=== PATIENT | female | born 1970 | race Caucasian/White ===

== ENCOUNTER 2020-06-08 16:41 | Outpatient (REF) | payer OTHER, SELFPAY ==
[2020-06-09 13:02] LABS: Influenza A PCR NEGATIVE (Negative); Influenza B PCR NEGATIVE (Negative); Resp Syncy Virus RNA Qual PCR NEGATIVE (Negative); SARS COV2 PCR INHOUSE NEGATIVE (Negative)
== END 2020-06-08 16:42 | disposition home or self-care (01) ==
LOC: HO.LAB 16:41
PROVIDERS: Visit Provider Nurse Practitioner Family
DX: Z20.822 Contact with and (suspected) exposure to COVID-19 (principal); J02.9 Acute pharyngitis, unspecified
CPT/HCPCS: 0241U; 36415

== ENCOUNTER 2020-08-15 19:09 | Emergency (ER) | payer OTHER, SELFPAY ==
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
[2020-08-15 19:15] VITALS: BMI 28.1
[2020-08-15 19:27] VITALS: BP 122/72; PULSE 89; RESP 16; TEMP 36.9; O2SAT 98
[2020-08-15 20:00] VITALS: BP 147/93; PULSE 94; RESP 18; O2SAT 98
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
[2020-08-15] MEDS: Acetaminophen 325 MG TABLET 650 MG PO (20:28)
[2020-08-15 21:58] VITALS: BP 131/86; PULSE 90; RESP 16; TEMP 36.7; O2SAT 98
== END 2020-08-15 22:02 | disposition home or self-care (01) ==
PROVIDERS: Emergency Provider Emergency Medicine; PCP Internal Medicine
DX: S13.4XXA Sprain of ligaments of cervical spine, initial encounter (principal); M54.2 Cervicalgia; G44.309 Post-traumatic headache, unspecified, not intractable; F17.200 Nicotine dependence, unspecified, uncomplicated; Z79.899 Other long term (current) drug therapy; Z71.6 Tobacco abuse counseling; V43.52XA Car driver injured in collision with other type car in traffic accident, initial encounter; Y93.9 Activity, unspecified; Y92.410 Unspecified street and highway as the place of occurrence of the external cause; Y99.9 Unspecified external cause status
CPT/HCPCS: 70450; 72125; 99285

== ENCOUNTER 2021-02-23 09:02 | Emergency (ER) | payer OTHER, SELFPAY ==
[2021-02-23 09:28] VITALS: BP 136/64; PULSE 80; RESP 18; TEMP 36.9; O2SAT 99; BMI 28.3
[2021-02-23 09:56] VITALS: BP 133/75; PULSE 76; RESP 16; TEMP 36.9; O2SAT 99
--- NOTE | 2021-02-23 09:56 | ED_ITS ---
HPI - Abdominal Pain General Chief Complaint: Abdominal Pain Stated Complaint: Low back pain/fever/nausea Time Seen by Provider: 02/23/21 09:51 Source: patient Mode of arrival: ambulatory Limitations: no limitations History of Present Illness HPI narrative: 50 y/o female presenting to the ER with lower back pain, he adache, runny nose, generalized abdominal discomfort and not feeling well for the last 3-4 days. Her symptoms started shortly after taking care of her 2 grandchildren who had a cold. She has not vaccinated for COVID-19. She says they were tested for COVID-19 were negative. She reports her lower back pain is worse with movement and improved with rest. She denies any trauma or recent falls. She denies any burning with urination, urinary frequency or hesitancy. No hematuria. She has had no fevers but some chills intermittently. She reports a stomach ache with decreased appetite but is tolerating both p.o. fluids and solids. No vomiting but she had 3 episodes of diarrhea 2 days ago. No blood. MD elicited complaint: abdominal pain Pertinent past history: none Onset (ago): day(s) (4) Pain Consistency: intermittent Location: diffuse Severity: moderate Quality: aching Radiation: none Migration to: no migration Exacerbating factors: nothing Relieving factors: nothing Associated symptoms: chills Related Data Home Medications Medication Instructions Recorded Confirmed acetaminophen 500 mg tablet 500 mg PO Q6H PRN 06/08/20 amoxicillin 500 mg tablet 500 mg PO BID 06/08/20 cetirizine 10 mg tablet 10 mg PO DAILY 06/08/20 cyclobenzaprine 10 mg tablet 10 mg PO Q8H PRN 06/08/20 fluticasone propionate 50 1 spray INTRANASAL BID 06/08/20 mcg/actuation nasal spray,suspension omeprazole 20 mg capsule,delayed 20 mg PO DAILY 06/08/20 release Previous Rx's Medication Instructions Recorded amoxicillin 875 mg-potassium 1 tab PO BID 7 Days #14 tab 06/08/20 clavulanate 125 mg tablet cyclobenzaprine 10 mg tablet 10 mg PO TID PRN #10 tab 08/15/20 ibuprofen 600 mg tablet 600 mg PO TID PRN #10 tab 08/15/20 Allergies Allergy/AdvReac Type Severity Reaction Status Date / Time ciprofloxacin [From CIPRO] Allergy Unknown PT UNABLE Unverified 11/28/19 16:42 TO RECALL THE REACTION SHE HAD tramadol [TRAMADOL] Allergy Unknown UNK Unverified 11/28/19 16:42 Review of Systems Review of Systems Constitutional: No Fever, + Chills ENT/Mouth: No sore throat, No Rhinorrhea, No Swallowing Difficulty Eyes: No Eye Pain, No Swelling, No Redness Cardiovascular: No Chest Pain, No SOB, No Orthopnea, No Edema Respiratory: No Cough, No Sputum, No Wheezing, No dyspnea Gastrointestinal: No Nausea, No Vomiting, + Diarrhea, + abdominal Pain Genitourinary: No Dysuria, No Urinary Frequency, No Hematuria Musculoskeletal: No joint pain, + Myalgias Skin: No Skin Lesions, No rash Neuro: + Weakness, No Numbness, No Dizziness, No Headache Psych: No Anxiety/Panic, No Depression Heme/Lymph: No Bruising, No Lymphadenopathy Endocrine: No Polyuria, No Polydipsia Physical Exam Vital Signs: Vital Signs: Last Vital Signs Temp 98.5 F 02/23/21 09:56 Pulse 76 02/23/21 09:56 Resp 16 02/23/21 09:56 BP 133/75 02/23/21 09:56 Pulse Ox 99 02/23/21 09:56 BMI result Body Mass Index 28.3 Appearance: Alert. Oriented X3. No acute distress. Eyes: Pupils equal, round and reactive to light. ENT: Pharynx normal. Neck: Normal inspection. Neck supple. CVS: Normal heart rate and rhythm. Pulses normal. Respiratory: No respiratory distress. Breath sounds normal. Abdomen: Soft and non-tender. +BS x4. No CVA tenderness. Back: mild soft tissue tenderness of the bilteral middle and lower lumbar areas. no spinal tenderness. normal spinal ROM. neg straight leg raise. Skin: Skin warm and dry. Normal skin color. Normal skin turgor. No rashes. Extremities: No lower extremity edema. Neuro: Oriented X 3. Grossly normal nonfocal. Course Course Course Narrative: 50 y/o female presenting with multiple complaints after being around her 2 sick grandchildren last week. She is not vaccinated for COVID-19. We her symptoms and viral in etiology. Will check COVID swab, basic lab workup in urinalysis. She appears well with a benign physical exam. Reevaluation(s) Reevaluation #1: Lab workup and urinalysis are unremarkable. COVID is negative. She continues to appear well. At this time she is stable for discharge home with supportive care. Her symptoms are most likely due to viral infection most likely contracted from her grandchildren last week. Stable for DC home with outpatient follow-up. MDM - Abdominal Pain Lab Data Result diagrams: 02/23/21 10:30 02/23/21 10:49 Labs: Lab Results 02/23/21 02/23/21 02/23/21 Range/Units 10:02 10:30 10:30 WBC 10.8 (4.8-10.8) X10*3/uL RBC 3.88 L (4.20-5.50) X10*6/uL Hgb 11.9 L (12.0-16.0) g/dl Hct 36.2 L (37.0-47.0) % MCV 93.3 (80.0-98.0) fL MCH 30.7 (27.0-33.0) pg MCHC 32.9 (31.0-35.0) g/dl RDW 12.7 (11.0-16.0) % Plt Count 256 (160-400) X10*3/uL MPV 8.7 L (9.4-12.3) fL Immature Gran % (Auto) 0.3 (0.0-0.4) % Neut % (Auto) 68.1 (45-73) % Lymph % (Auto) 22.4 (20-40) % [place] % (Auto) 7.2 (2-11) % Eos % (Auto) 1.6 (0-4) % Baso % (Auto) 0.4 (0-2) % Lymph # (Auto) 2.4 (1.2-4.9) X10*3/uL [place] # (Auto) 0.8 (0.1-1.2) X10*3/uL Eos # (Auto) 0.2 (0.0-0.4) X10*3/uL Baso # (Auto) 0.0 (0.0-0.2) X10*3/uL Abs Immat Gran (auto) 0.03 (0.00-0.03) X10*3/uL Absolute Neuts (auto) 7.3 (2.0-8.3) x10*3/uL Absolute Nucleated RBC 0.000 (0.0-0.012) X10*3/uL Nucleated RBC % (auto) 0.0 (0.0-0.2) /100WBC Sodium (135-145) mmol/L Potassium (3.3-5.1) mmol/L Chloride (96-108) mmol/L Carbon Dioxide (22-29) mmol/L Anion Gap (12-20) BUN (9-16) mg/dL Creatinine (0.5-1.4) mg/dL Estim Creat Clear Calc Estimated GFR Random Glucose (60-115) mg/dL Calcium (8.4-10.2) mg/dL Magnesium (1.6-2.6) mg/dL Total Bilirubin (0.0-1.0) mg/dL Direct Bilirubin (0.0-0.5) mg/dL AST (5-31) U/L ALT (0-31) U/L Alkaline Phosphatase (39-117) U/L Total Protein (6.5-8.0) g/dL Albumin (3.5-5.0) g/dL Urine Color YELLOW Urine Appearance HAZY Urine pH 6.5 (5.0-8.0) Ur Specific [place] <= 1.005 (1.005-1.025) Urine Protein NEG (NEG-TRACE) MG/DL Urine Glucose (UA) NEG (NEG) MG/DL Urine Ketones NEG (NEG) MG/DL Urine Blood NEG (NEG) Urine Nitrite NEG (NEG) Ur Leukocyte Esterase NEG (NEG) COVID-19 ([place]) Negative (Negative) COVID-19 Clin Com See Note 02/23/21 Range/Units 10:49 WBC (4.8-10.8) X10*3/uL RBC (4.20-5.50) X10*6/uL Hgb (12.0-16.0) g/dl Hct (37.0-47.0) % MCV (80.0-98.0) fL MCH (27.0-33.0) pg MCHC (31.0-35.0) g/dl RDW (11.0-16.0) % Plt Count (160-400) X10*3/uL MPV (9.4-12.3) fL Immature Gran % (Auto) (0.0-0.4) % Neut % (Auto) (45-73) % Lymph % (Auto) (20-40) % [place] % (Auto) (2-11) % Eos % (Auto) (0-4) % Baso % (Auto) (0-2) % Lymph # (Auto) (1.2-4.9) X10*3/uL [place] # (Auto) (0.1-1.2) X10*3/uL Eos # (Auto) (0.0-0.4) X10*3/uL Baso # (Auto) (0.0-0.2) X10*3/uL Abs Immat Gran (auto) (0.00-0.03) X10*3/uL Absolute Neuts (auto) (2.0-8.3) x10*3/uL Absolute Nucleated RBC (0.0-0.012) X10*3/uL Nucleated RBC % (auto) (0.0-0.2) /100WBC Sodium 138 (135-145) mmol/L Potassium 4.0 (3.3-5.1) mmol/L Chloride 106 (96-108) mmol/L Carbon Dioxide 27 (22-29) mmol/L Anion Gap 9 L (12-20) BUN 10 (9-16) mg/dL Creatinine 0.68 (0.5-1.4) mg/dL Estim Creat Clear Calc 103.9 Estimated GFR > 60 Random Glucose 91 (60-115) mg/dL Calcium 9.3 (8.4-10.2) mg/dL Magnesium 2.3 (1.6-2.6) mg/dL Total Bilirubin 0.3 (0.0-1.0) mg/dL Direct Bilirubin < 0.2 (0.0-0.5) mg/dL AST 16 (5-31) U/L ALT 22 (0-31) U/L Alkaline Phosphatase 81 (39-117) U/L Total Protein 7.4 (6.5-8.0) g/dL Albumin 4.1 (3.5-5.0) g/dL Urine Color Urine Appearance Urine pH (5.0-8.0) Ur Specific [place] (1.005-1.025) Urine Protein (NEG-TRACE) MG/DL Urine Glucose (UA) (NEG) MG/DL Urine Ketones (NEG) MG/DL Urine Blood (NEG) Urine Nitrite (NEG) Ur Leukocyte Esterase (NEG) COVID-19 ([place]) (Negative) COVID-19 Clin Com Critical Care Time Critical Care Time Critical Care Time: No Discharge Plan Discharge Clinical Impression: Acute viral syndrome Patient Disposition: Home, Self-Care Instructions: Viral Syndrome (ED) Additional Instructions: Your lab workup today was normal. Your urine test was normal. You were negative for COVID-19. Your symptoms are most likely due to acute viral syndrome Recommend rest, increase her oral hydration and drink plenty water. Take Motrin and/or Tylenol as needed for body aches. Take [id number] cold and flu medication as needed for your symptoms. Follow-up with your doctor this week. If you develop new or worsening symptoms call 911 or come back to the ER for further evaluation. Prescriptions: No Action cyclobenzaprine 10 mg tablet 10 mg PO TID PRN (Reason: muscle spasm) Qty: 10 RF: 0 ibuprofen 600 mg tablet 600 mg PO TID PRN (Reason: pain) Qty: 10 RF: 0 fluticasone propionate 50 mcg/actuation spray,suspension 1 spray intranasal BID RF: 0 cetirizine 10 mg tablet 10 mg PO DAILY RF: 0 omeprazole 20 mg capsule,delayed release(DR/EC) 20 mg PO DAILY RF: 0 amoxicillin 500 mg tablet 500 mg PO BID RF: 0 cyclobenzaprine 10 mg tablet 10 mg PO Q8H PRN (Reason: muscle spasm) RF: 0 acetaminophen 500 mg tablet 500 mg PO Q6H PRN (Reason: pain) RF: 0 amoxicillin-pot clavulanate 875-125 mg tablet 1 tab PO BID 7 Days Qty: 14 RF: 0 Interventions: ED Discharge Assessment Last Done: 02/23/21 12:13 Discharge Date/Time: 02/23/21 12:22 [facility] Social History Social History Alcohol intake: never Patient Tobacco Use Status: Current everyday Tobacco user Smoked in Last 30 Days: Yes Use of substances other than those prescribed or required for medical reasons: No Advance Directives: No Advance Directives Information Provided: No Patient : No
[2021-02-23 10:08] LABS: Appearance Urine HAZY; Color Urine YELLOW; Glucose Urine UA NEG (NEG); Leukocyte Esterase Urine NEG (NEG); Nitrite Urine NEG (NEG); PH 6.5 (5.0-8.0); Specific Gravity - Urine <= 1.005 (1.005-1.025); Urine Blood NEG (NEG); Urine Ketones NEG (NEG); Urine Protein NEG (NEG-TRACE)
[2021-02-23 10:34] LABS: MANUAL DIFF FLAG NO
[2021-02-23 10:37] LABS: Basophils Percent Auto 0.4 % (0-2); Eosinophils Absolute Auto 0.2 X10*3/uL (0.0-0.4); Eosinophils Percent Auto 1.6 % (0-4); Hematocrit 36.2 % (37.0-47.0); Hemoglobin 11.9 g/dl (12.0-16.0); Imm Gran Abs Auto 0.03 X10*3/uL (0.00-0.03); Imm Gran Pct Auto 0.3 % (0.0-0.4); Lymphocytes Absolute Auto 2.4 X10*3/uL (1.2-4.9); Lymphocytes Percent Auto 22.4 % (20-40); Mean Corpuscular HGB Conc 32.9 g/dl (31.0-35.0); Mean Corpuscular Hemoglobin 30.7 pg (27.0-33.0); Mean Corpuscular Volume 93.3 fL (80.0-98.0); Mean Platelet Volume 8.7 fL (9.4-12.3); Monocytes Absolute Auto 0.8 X10*3/uL (0.1-1.2); Monocytes Percent Auto 7.2 % (2-11); Neutrophils Absolute Auto 7.3 x10*3/uL (2.0-8.3); Neutrophils Percent Auto 68.1 % (45-73); Platelet Count 256 X10*3/uL (160-400); Red Blood Count 3.88 X10*6/uL (4.20-5.50); Red Cell Distribution Width 12.7 % (11.0-16.0); White Blood Count 10.8 X10*3/uL (4.8-10.8)
[2021-02-23 10:51] LABS: COVID-19 Test Negative (Negative)
[2021-02-23 11:17] LABS: Alanine Aminotransferase 22 U/L (0-31); Albumin Level 4.1 g/dL (3.5-5.0); Alkaline Phosphatase 81 U/L (39-117); Anion Gap 9 (12-20); Aspartate Amino Transferase 16 U/L (5-31); Bilirubin Direct < 0.2 mg/dL (0.0-0.5); Bilirubin Total 0.3 mg/dL (0.0-1.0); Blood Urea Nitrogen 10 mg/dL (9-16); Calcium 9.3 mg/dL (8.4-10.2); Carbon Dioxide 27 mmol/L (22-29); Chloride 106 mmol/L (96-108); Creatinine Clr Calc Pharmacy 103.9; Estimated Glomerular Filt Rate > 60; Glucose Random 91 mg/dL (60-115); Magnesium 2.3 mg/dL (1.6-2.6); Sodium 138 mmol/L (135-145); Total Protein 7.4 g/dL (6.5-8.0)
== END 2021-02-23 12:22 | disposition home or self-care (01) ==
PROVIDERS: Physician Assistant; Emergency Provider Emergency Medicine
DX: B34.9 Viral infection, unspecified (principal); Z20.822 Contact with and (suspected) exposure to COVID-19; M54.50 Low back pain, unspecified; R51.9 Headache, unspecified
CPT/HCPCS: 36415; 80048; 80076; 81003; 83735; 85025; 87635; 99283; 99284

== ENCOUNTER 2021-04-03 15:47 | Emergency (ER) | payer OTHER, SELFPAY ==
--- NOTE | ~2021-04-03 | XR_ITS ---
EXAMINATION: XR CHEST CLINICAL INFORMATION: Shortness of breath and chest pain. COMPARISON: Chest radiograph dated from 04/13/2019. TECHNIQUE: 2 views of the chest were obtained. FINDINGS: Normal appearance of the cardiomediastinal silhouette. Clear lungs. No pleural effusions or pneumothorax. No acute osseous abnormalities. Thoracic spondylosis. XR/XR chest 2V IMPRESSION: No acute cardiopulmonary findings.
[2021-04-03 16:13] VITALS: BP 119/78; PULSE 81; RESP 18; TEMP 36.4; O2SAT 100; BMI 29.0
--- NOTE | 2021-04-03 16:59 | ED.GENADULT ---
HPI - General Adult General Chief complaint: General Medical Stated complaint: +covid 1/4 lower back pain,coughing Time Seen by Provider: 04/03/21 16:37 Source: patient Mode of arrival: ambulatory Limitations: no limitations History of Present Illness HPI narrative: 50-year-old female who tested positive for COVID on March 16 here with reports of sore throat, low back pain, weakness, cough, chest discomfort with coughing which has been persistent since diagnosis. No fevers, chills, sob, leg swelling or pain. Unvaccinated for COVID Related Data Home Medications Medication Instructions Recorded Confirmed acetaminophen 500 mg tablet 500 mg PO Q6H PRN 06/08/20 amoxicillin 500 mg tablet 500 mg PO BID 06/08/20 cetirizine 10 mg tablet 10 mg PO DAILY 06/08/20 cyclobenzaprine 10 mg tablet 10 mg PO Q8H PRN 06/08/20 fluticasone propionate 50 1 spray INTRANASAL BID 06/08/20 mcg/actuation nasal spray,suspension omeprazole 20 mg capsule,delayed 20 mg PO DAILY 06/08/20 release Previous Rx's Medication Instructions Recorded amoxicillin 875 mg-potassium 1 tab PO BID 7 Days #14 tab 06/08/20 clavulanate 125 mg tablet cyclobenzaprine 10 mg tablet 10 mg PO TID PRN #10 tab 08/15/20 ibuprofen 600 mg tablet 600 mg PO TID PRN #10 tab 08/15/20 Allergies Allergy/AdvReac Type Severity Reaction Status Date / Time ciprofloxacin [From CIPRO] Allergy Unknown PT UNABLE Verified 04/03/21 16:12 TO RECALL THE REACTION SHE HAD tramadol [TRAMADOL] Allergy Unknown UNK Verified 04/03/21 16:12 Review of Systems Review of Systems: Yes all other systems are reviewed and are negative Constitutional: Constitutional: Reports no additional constitutional complaints, Denies body ache(s), Denies chills, Denies fever(s), Denies headache(s) and Reports weakness Eyes: Eyes: Reports no additional eye complaints and Denies change in vision ENT: Reports system reviewed and no additional complaints, except as documented, Denies dizziness, Denies headache(s), Denies nasal congestion, Denies nasal discharge, Denies neck pain and Reports sore throat Cardiovascular: Cardiovascular: Reports no additional cardiovascular complaints, Denies chest pain, Denies leg edema and Denies dyspnea Respiratory: Respiratory: Reports no additional respiratory complaints, Reports cough, Denies dyspnea and Reports wheezing Gastrointestinal: Gastrointestinal: Reports no additional gastrointestinal complaints, Denies abdominal pain, Denies diarrhea, Denies nausea and Denies vomiting Genitourinary: Genitourinary: Reports no additional female genitourinary complaints and Denies urinary incontinence Musculoskeletal: Musculoskeletal: Reports no additional musculoskeletal complaints, Reports back pain, Denies arthralgias, Denies joint swelling, Denies neck pain, Denies numbness and Denies tingling Integumentary/Breasts: Skin/Breast: Reports system reviewed and no additional complaints, except as docu and Denies rash Neurologic: Reports system reviewed and no additional complaints, except as documented, Denies Abnormal speech present, Denies dizziness, Denies headache(s), Denies numbness, Denies tingling and Reports weakness Allergic/Immunologic: Allergic/Immunologic: Reports wheezing PMFSH Past Medical History Attestation statement: The following information was validated with the patient. Source: old records reviewed and nursing notes reviewed Social History Social History Alcohol intake: never Patient Tobacco Use Status: Current everyday Tobacco user Advance Directives: No Advance Directives Information Provided: No Patient : No Physical Exam Vital Signs: Vital Signs: Last Vital Signs Temp 97.6 F 04/03/21 16:13 Pulse 81 04/03/21 16:13 Resp 18 04/03/21 16:13 BP 119/78 04/03/21 16:13 Pulse Ox 100 04/03/21 16:13 BMI result Body Mass Index 29.0 Const: General: cooperative, healthy appearing, comfortable and no acute distress Orientation/consciousness: patient oriented x3 Limitations: no limitations HENMT: Head: Yes normal to inspection Ears: hearing grossly normal bilaterally and TM's normal bilaterally General nose exam: Normal external nose present Face and sinus: Yes normal facial exam Mouth: Normal oral and palatal mucosa present Throat: Yes posterior oropharynx normal, Yes tonsils normal and Yes uvula midline Eyes: General: appearance normal, both eyes and all related structures Pupils: Equal, round and reactive pupils present Neck: Neck: Yes normal visual inspection, Yes full ROM, Yes no lymphadenopathy and Yes no meningeal signs Chest: Chest palpation & inspection: normal inspection of the chest Resp: Effort & Inspection: normal respiratory effort Auscultation: clear to auscultation bilaterally Cardio: Rate: regular rate Rhythm: regular rhythm Peripheral pulses: Peripheral pulses 2+ throughout GI: Inspection: Yes normal to inspection Palpation (GI): Soft to palpation and nontender Auscultation: normal bowel sounds Back/Spine/Pelvis: Thoracic/Lumbar Spine: thoracic and lumbar spine normal to inspection Skin: General skin exam: no rashes or lesions noted Neuro: General: patient oriented x3, no meningeal signs, no focal motor deficits and normal sensation to monofilament Cranial nerves: Yes Equal, round and reactive pupils present Cognition (Neuro): normal cognition Speech: No Abnormal speech present Gait exam (Neuro): Normal gait present Motor exam (neuro): 5/5 motor strength present throughout Extrem: General: Yes normal to inspection, Yes no pedal edema and Yes no calf tenderness Course Course Course Narrative: 50-year-old female here with reports of continued sore throat, low back pain, generalized weakness, cough, chest discomfort with coughing since being diagnosed with COVID March 16 Vitals are stable Exam is benign Will check x-ray 1730-chest x-ray is negative for pneumonia. Overall patient appears well. Vitals are stable and exam is benign. Her lungs are clear throughout. Likely chest wall strain secondary to coughing. Perc score is 0. Less likely PE. Likely lingering symptoms secondary to recent viral infection. Reviewed worrisome signs and symptoms of when to return to the emergency department. Comfortable discharge home. Medical Decision Making Medical Records Medical records reviewed: Yes I reviewed the patient's medical records. Lab Data Lab results reviewed: Yes I reviewed the patient's lab results. Imaging Data Chest x-ray: Attestation: I personally reviewed and interpreted this imaging study as follows: Radiologist's impression: [address] [address] XRay Report Signed Patient: Damaris Herring MR#: [id number] : 09/26/1995 Acct:[id number] Age/Sex: 25 / F ADM Date: 04/03/21 Loc: .ED Attending Dr: Ordering Physician: Bing Lentz NP Date of Service: 04/03/21 Procedure(s): XR chest 2V Accession Number(s): [id number] cc: Bing Lentz MARKETING SUPPORT COORDINATOR~ EXAMINATION: XR CHEST CLINICAL INFORMATION: Cough and wheezing COMPARISON: Previous chest x-ray 03/11/2021 TECHNIQUE: 2 views of the chest were obtained. FINDINGS: The cardiac and mediastinal contours are normal. The lung volumes are low. There is a left perihilar infiltrate new from February 2021 exam. The right lung is clear. There is no pleural effusion or pneumothorax. Bony structures are unremarkable. XR/XR chest 2V IMPRESSION: Low lung volumes and new left perihilar infiltrate. Discharge Plan Discharge Clinical Impression: COVID-19 Patient Disposition: Home, Self-Care Instructions: COVID-19 (Coronavirus Disease 2019) (ED) Additional Instructions: Your x-ray shows no signs of pneumonia. Your vitals including her oxygen are all normal You may alternate Motrin and Tylenol for pain or fever Increase fluids and rest Retesting for COVID is not indicated Prescriptions: No Action cyclobenzaprine 10 mg tablet 10 mg PO TID PRN (Reason: muscle spasm) Qty: 10 RF: 0 ibuprofen 600 mg tablet 600 mg PO TID PRN (Reason: pain) Qty: 10 RF: 0 fluticasone propionate 50 mcg/actuation spray,suspension 1 spray intranasal BID RF: 0 cetirizine 10 mg tablet 10 mg PO DAILY RF: 0 omeprazole 20 mg capsule,delayed release(DR/EC) 20 mg PO DAILY RF: 0 amoxicillin 500 mg tablet 500 mg PO BID RF: 0 cyclobenzaprine 10 mg tablet 10 mg PO Q8H PRN (Reason: muscle spasm) RF: 0 acetaminophen 500 mg tablet 500 mg PO Q6H PRN (Reason: pain) RF: 0 amoxicillin-pot clavulanate 875-125 mg tablet 1 tab PO BID 7 Days Qty: 14 RF: 0 Referrals: Physician,None [Primary Care Provider] - 2 days
== END 2021-04-03 17:45 | disposition home or self-care (01) ==
PROVIDERS: Emergency Provider Internal Medicine
DX: U07.1 COVID-19 (principal); M54.50 Low back pain, unspecified
CPT/HCPCS: 71046; 99283

== ENCOUNTER 2021-04-22 10:43 | Emergency (ER) | payer OTHER, SELFPAY ==
--- NOTE | ~2021-04-22 | US_ITS ---
EXAMINATION: US RETROPERITONEAL LIMITED (RENAL ONLY) CLINICAL INFORMATION: Left flank pain with history of stone. COMPARISON: CT abdomen pelvis 10/23/2017 TECHNIQUE: Ultrasound of the kidneys was performed. FINDINGS: RIGHT KIDNEY: 12.0 x 5.9 x 6.4 cm (SAG x AP x TRV). The kidney is normal in size, contour, and echogenicity. Renal cortical thickness is normal. No calculi or focal parenchymal lesions. No hydronephrosis. LEFT KIDNEY: 11.9 x 6.4 x 4.6 cm (SAG x AP x TRV). The kidney is normal in size, contour, and echogenicity. Renal cortical thickness is normal. A benign Bosniak class I 2.3 cm lower pole cyst is again noted (prior CT 5:54) which needs no further imaging or follow-up. No calculi or focal parenchymal lesions. No renal calcifications were seen on the prior CT. No hydronephrosis. US/US renal BI IMPRESSION: Negative exam.
[2021-04-22 11:43] VITALS: BP 137/72; PULSE 79; RESP 18; TEMP 36.9; O2SAT 100; BMI 28.1
[2021-04-22 12:15] LABS: Appearance Urine CLEAR; Color Urine STRAW; Glucose Urine UA NEG (NEG); Leukocyte Esterase Urine NEG (NEG); Nitrite Urine NEG (NEG); Specific Gravity - Urine <= 1.005 (1.005-1.025); Urine Blood NEG (NEG); Urine Ketones NEG (NEG); Urine Protein NEG (NEG-TRACE)
--- NOTE | 2021-04-22 17:44 | ED_ITS ---
HPI - Female Genitourinary General Chief complaint: Urogenital-Female Stated complaint: kidney pain Time Seen by Provider: 04/22/21 15:29 Source: patient Mode of arrival: ambulatory Limitations: no limitations History of Present Illness HPI Narrative: 50-year-old female came in for evaluation of left side flank pain. Pain started 3 days ago, described as dull aching pain, intermittent, aggravated with movement or bending, no relieving factor, associated with increased urinary frequency but no dysuria, no fever, no chills. Patient declined any recent trauma or strenuous activity more than her normal, patient take care of her grand children that she need to carry them sporadically. Patient had history of kidney stone in the past, no past surgical history, sexually active with 1 partner with no risk of STDs. Related Data Home Medications Medication Instructions Recorded Confirmed acetaminophen 500 mg tablet 500 mg PO Q6H PRN 06/08/20 amoxicillin 500 mg tablet 500 mg PO BID 06/08/20 cetirizine 10 mg tablet 10 mg PO DAILY 06/08/20 cyclobenzaprine 10 mg tablet 10 mg PO Q8H PRN 06/08/20 fluticasone propionate 50 1 spray INTRANASAL BID 06/08/20 mcg/actuation nasal spray,suspension omeprazole 20 mg capsule,delayed 20 mg PO DAILY 06/08/20 release Previous Rx's Medication Instructions Recorded amoxicillin 875 mg-potassium 1 tab PO BID 7 Days #14 tab 06/08/20 clavulanate 125 mg tablet cyclobenzaprine 10 mg tablet 10 mg PO TID PRN #10 tab 08/15/20 ibuprofen 600 mg tablet 600 mg PO TID PRN #10 tab 08/15/20 cyclobenzaprine 10 mg tablet 10 mg PO TID PRN #14 tab 04/22/21 ibuprofen 600 mg tablet 600 mg PO TID PRN #10 tab 04/22/21 Allergies Allergy/AdvReac Type Severity Reaction Status Date / Time ciprofloxacin [From CIPRO] Allergy Unknown PT UNABLE Verified 04/03/21 16:12 TO RECALL THE REACTION SHE HAD tramadol [TRAMADOL] Allergy Unknown UNK Verified 04/03/21 16:12 Review of Systems Review of Systems: All other systems are reviewed and are negative Constitutional: Reports as per HPI and Reports no additional constitutional complaints Eyes: Reports as per HPI and Reports no additional eye complaints Reports system reviewed and no additional complaints, except as documented Cardiovascular: Reports as per HPI and Reports no additional cardiovascular complaints Respiratory: Reports as per HPI and Reports no additional respiratory complaints Gastrointestinal: Reports as per HPI and Reports no additional gastrointestinal complaints Genitourinary: Reports no additional female genitourinary complaints Musculoskeletal: Reports no additional musculoskeletal complaints Skin/Breast: Reports system reviewed and no additional complaints, except as docu Psychiatric: Reports no additional psychiatric complaints Endocrine: Reports no additional endocrine complaints Hematologic/Lymphatic: Reports no additional hematologic/lymphatic complaints Allergic/Immunologic: Reports no additional allergic/immunologic complaints Reports system reviewed and no additional complaints, except as documented and Reports Abnormal speech present [facility] Social History Social History Alcohol intake: never Patient Tobacco Use Status: Never used Tobacco Use of substances other than those prescribed or required for medical reasons: No Advance Directives: No Advance Directives Information Provided: No Patient : No Physical Exam Vital Signs: Vital Signs: Last Vital Signs Temp 98.3 F 04/22/21 19:45 Pulse 80 04/22/21 19:45 Resp 20 04/22/21 19:45 BP 132/65 04/22/21 19:45 Pulse Ox 100 04/22/21 19:45 BMI result Body Mass Index 28.1 vital signs have been reviewed as appeared to be correct. Blood pressure normal. Heart rate normal. Respiration rate normal. Temperature normal. Oxygen saturation normal. Appearance: Alert. Oriented X3. No acute distress. Head: Normal external exam. Normocephalic. Atraumatic. No Curry signs noted. No raccoon eyes noted Eyes: PERRLA. EOMI. Conjunctiva and sclera normal. Eyelids normal. ENT: TM's Normal. Pharynx normal. Uvula midline. Moist mucous membranes. No trismus noted. No drooling noted. No muffled voice noted. Neck: Normal inspection. Neck supple. FROM. No adenopathy. Thyroid Normal. No meningeal signs. No neck mass noted. CVS: Normal heart rate and rhythm. Heart sound normal. No murmurs noted. Pulses normal throughout. Respiratory: No respiratory distress. Painless inspiration. Breath sounds normal. No wheezes/rales/rhonchi noted. Chest nontender. No accessory muscle usage noted or decreased air movement noted. Abdomen: Soft and nontender. Bowel sounds normal in all 4 quadrants. No distention noted. No organomegaly noted. No visible injury noted. Back: No CVA tenderness. Mild tenderness over left flank area with touch and with movement. Skin: Skin warm and dry. Normal skin color. Normal skin turgor. No rashes/lesions/lacerations noted. Extremities: No lower extremity edema. Extremities exhibit normal range of motion. Extremities nontender. Neuro: Oriented X 3. Cranial nerve exam: II-XII are grossly intact No motor deficit. No sensory deficit. Reflexes normal. Course Course Course Narrative: Assessment and plan. 50-year-old female came in for evaluation of left flank pain for 3 days with equivocal dysuria, clear urine, unremarkable Labs Except for leukocytosis. ultrasound of the kidney is unremarkable for kidney stones, physical exam and findings are consistent with myofascial muscular spasm. Will recommend NSAIDs/ Tylenol with muscle relaxant and heating pads. MDM - Female Genitourinary Lab Data Attestation: I reviewed the patient's lab results. Result diagrams: 04/22/21 17:49 04/22/21 17:49 Labs: Lab Results 04/22/21 04/22/21 04/22/21 Range/Units 11:53 17:49 17:49 WBC 13.4 H (4.8-10.8) X10*3/uL RBC 3.86 L (4.20-5.50) X10*6/uL Hgb 11.7 L (12.0-16.0) g/dl Hct 36.0 L (37.0-47.0) % MCV 93.3 (80.0-98.0) fL MCH 30.3 (27.0-33.0) pg MCHC 32.5 (31.0-35.0) g/dl RDW 13.1 (11.0-16.0) % Plt Count 283 (160-400) X10*3/uL MPV 8.6 L (9.4-12.3) fL Immature Gran % (Auto) 0.3 (0.0-0.4) % Neut % (Auto) 76.3 H (45-73) % Lymph % (Auto) 16.0 L (20-40) % [place] % (Auto) 5.5 (2-11) % Eos % (Auto) 1.6 (0-4) % Baso % (Auto) 0.3 (0-2) % Lymph # (Auto) 2.1 (1.2-4.9) X10*3/uL [place] # (Auto) 0.7 (0.1-1.2) X10*3/uL Eos # (Auto) 0.2 (0.0-0.4) X10*3/uL Baso # (Auto) 0.0 (0.0-0.2) X10*3/uL Abs Immat Gran (auto) 0.04 H (0.00-0.03) X10*3/uL Absolute Neuts (auto) 10.2 H (2.0-8.3) x10*3/uL Absolute Nucleated RBC 0.000 (0.0-0.012) X10*3/uL Nucleated RBC % (auto) 0.0 (0.0-0.2) /100WBC Sodium 138 (135-145) mmol/L Potassium 3.8 (3.3-5.1) mmol/L Chloride 104 (96-108) mmol/L Carbon Dioxide 29 (22-29) mmol/L Anion Gap 9 L (12-20) BUN 9 (9-16) mg/dL Creatinine 0.74 (0.5-1.4) mg/dL Estim Creat Clear Calc 95.2 Estimated GFR > 60 Random Glucose 144 H (60-115) mg/dL Calcium 9.3 (8.4-10.2) mg/dL Total Bilirubin 0.2 (0.0-1.0) mg/dL AST 16 (5-31) U/L ALT 21 (0-31) U/L Alkaline Phosphatase 85 (39-117) U/L Total Protein 7.6 (6.5-8.0) g/dL Albumin 4.1 (3.5-5.0) g/dL Urine Color STRAW Urine Appearance CLEAR Urine pH 6.0 (5.0-8.0) Ur Specific [place] <= 1.005 (1.005-1.025) Urine Protein NEG (NEG-TRACE) MG/DL Urine Glucose (UA) NEG (NEG) MG/DL Urine Ketones NEG (NEG) MG/DL Urine Blood NEG (NEG) Urine Nitrite NEG (NEG) Ur Leukocyte Esterase NEG (NEG) Imaging Data abdominal ultrasound: Attestation: I personally reviewed and interpreted this imaging study as follows: Radiologist's impression: RIGHT KIDNEY: 12.0 x 5.9 x 6.4 cm (SAG x AP x TRV). The kidney is normal in size, contour, and echogenicity. Renal cortical thickness is normal. No calculi or focal parenchymal lesions. No hydronephrosis. LEFT KIDNEY: 11.9 x 6.4 x 4.6 cm (SAG x AP x TRV). The kidney is normal in size, contour, and echogenicity. Renal cortical thickness is normal. A benign Bosniak class I 2.3 cm lower pole cyst is again noted (prior CT 5:54) which needs no further imaging or follow-up. No calculi or focal parenchymal lesions. No renal calcifications were seen on the prior CT. No hydronephrosis. Discharge Plan Discharge Clinical Impression: Acute myofascial pain Patient Disposition: Home, Self-Care Instructions: Musculoskeletal Pain (ED) Additional Instructions: rest/ heating pads/ use ibuprofen/ Tylenol. Prescriptions: New cyclobenzaprine 10 mg tablet 10 mg PO TID PRN (Reason: muscle spasm) Qty: 14 0RF ibuprofen 600 mg tablet 600 mg PO TID PRN (Reason: pain) Qty: 10 0RF No Action cyclobenzaprine 10 mg tablet 10 mg PO TID PRN (Reason: muscle spasm) Qty: 10 0RF ibuprofen 600 mg tablet 600 mg PO TID PRN (Reason: pain) Qty: 10 0RF fluticasone propionate 50 mcg/actuation spray,suspension 1 spray intranasal BID 0RF cetirizine 10 mg tablet 10 mg PO DAILY 0RF omeprazole 20 mg capsule,delayed release(DR/EC) 20 mg PO DAILY 0RF amoxicillin 500 mg tablet 500 mg PO BID 0RF cyclobenzaprine 10 mg tablet 10 mg PO Q8H PRN (Reason: muscle spasm) 0RF acetaminophen 500 mg tablet 500 mg PO Q6H PRN (Reason: pain) 0RF amoxicillin-pot clavulanate 875-125 mg tablet 1 tab PO BID 7 Days Qty: 14 0RF Referrals: Physician,Unknown J [Primary Care Provider] - 2 days
[2021-04-22 17:53] LABS: MANUAL DIFF FLAG NO
[2021-04-22 17:56] LABS: Basophils Percent Auto 0.3 % (0-2); Eosinophils Absolute Auto 0.2 X10*3/uL (0.0-0.4); Eosinophils Percent Auto 1.6 % (0-4); Hemoglobin 11.7 g/dl (12.0-16.0); Imm Gran Abs Auto 0.04 X10*3/uL (0.00-0.03); Imm Gran Pct Auto 0.3 % (0.0-0.4); Lymphocytes Absolute Auto 2.1 X10*3/uL (1.2-4.9); Mean Corpuscular HGB Conc 32.5 g/dl (31.0-35.0); Mean Corpuscular Hemoglobin 30.3 pg (27.0-33.0); Mean Corpuscular Volume 93.3 fL (80.0-98.0); Mean Platelet Volume 8.6 fL (9.4-12.3); Monocytes Absolute Auto 0.7 X10*3/uL (0.1-1.2); Monocytes Percent Auto 5.5 % (2-11); Neutrophils Absolute Auto 10.2 x10*3/uL (2.0-8.3); Neutrophils Percent Auto 76.3 % (45-73); Platelet Count 283 X10*3/uL (160-400); Red Blood Count 3.86 X10*6/uL (4.20-5.50); Red Cell Distribution Width 13.1 % (11.0-16.0); White Blood Count 13.4 X10*3/uL (4.8-10.8)
[2021-04-22 18:00] VITALS: BP 123/70; PULSE 87; RESP 18; TEMP 36.9; O2SAT 98
[2021-04-22 18:12] LABS: Alanine Aminotransferase 21 U/L (0-31); Albumin Level 4.1 g/dL (3.5-5.0); Alkaline Phosphatase 85 U/L (39-117); Anion Gap 9 (12-20); Aspartate Amino Transferase 16 U/L (5-31); Bilirubin Total 0.2 mg/dL (0.0-1.0); Blood Urea Nitrogen 9 mg/dL (9-16); Calcium 9.3 mg/dL (8.4-10.2); Carbon Dioxide 29 mmol/L (22-29); Chloride 104 mmol/L (96-108); Creatinine Clr Calc Pharmacy 95.2; Estimated Glomerular Filt Rate > 60; Glucose Random 144 mg/dL (60-115); Potassium 3.8 mmol/L (3.3-5.1); Sodium 138 mmol/L (135-145); Total Protein 7.6 g/dL (6.5-8.0)
[2021-04-22] MEDS: Cyclobenzaprine HCl 10 MG TABLET PO (18:23)
[2021-04-22] MEDS: Acetaminophen 325 MG TABLET 650 MG PO (18:23)
--- NOTE | 2021-04-22 18:46 | PC.NURSE ---
c/o right sided lower back pain. up with steady gait to BR. awaits ultrasound.
[2021-04-22 19:45] VITALS: BP 132/65; PULSE 80; RESP 20; TEMP 36.8; O2SAT 100
[2021-04-22] MEDS: oxyCODONE HCl Immed Release 5 MG TABLET PO (20:46)
[2021-04-22 20:47] VITALS: BP 132/65; PULSE 80; RESP 16
== END 2021-04-22 21:21 | disposition home or self-care (01) ==
PROVIDERS: Nurse Practitioner Family; Emergency Provider Emergency Medicine
DX: R10.9 Unspecified abdominal pain (principal); R51.9 Headache, unspecified; Z79.899 Other long term (current) drug therapy
CPT/HCPCS: 36415; 76775; 80053; 81003; 85025; 99284

== ENCOUNTER 2021-05-23 11:26 | Emergency (ER) | payer OTHER, SELFPAY ==
--- NOTE | ~2021-05-23 | XR_ITS ---
EXAMINATION: XR CHEST CLINICAL INFORMATION: Cough, shortness of breath COMPARISON: Chest x-ray 04/03/2021 TECHNIQUE: Frontal view of the chest was obtained. FINDINGS: Normal cardiomediastinal silhouette. Adequate expansion of the lungs. No focal consolidation. No pleural effusion or pneumothorax. No acute osseous abnormality. Degenerative changes of the spine. XR/XR chest 1V IMPRESSION: No acute disease within the chest. No focal consolidation.
[2021-05-23 11:29] VITALS: BP 110/70; PULSE 92; RESP 18; TEMP 36.4; O2SAT 99; BMI 28.3
[2021-05-23 11:53] LABS: COVID-19 Test Negative (Negative); IDNOW Serial# 9DB6401D
[2021-05-23 11:54] LABS: IDNOW Serial# 08D9AD1C; Influenza A Negative (Negative); Influenza B2 Negative (Negative)
--- NOTE | 2021-05-23 12:17 | ED.URI ---
HPI - URI/Sore Throat General Chief Complaint: Upper Respiratory Symptoms Stated Complaint: headaches/flu like symptoms Time Seen by Provider: 05/23/21 12:03 Source: patient Mode of arrival: ambulatory History of Present Illness HPI Narrative: 51-year-old female with no significant past medical history presenting to the ED complaining of headache, nasal congestion, rhinorrhea, sore throat, cough, mild SOB, and dysuria x3 days. Reports associated suprapubic pain. Denies fever, chest pain, abdominal pain, nausea, vomiting, flank pain MD elicited complaint: fever, cough, sore throat, rhinorrhea and nasal congestion Onset (ago): day(s) Related Data Home Medications Medication Instructions Recorded Confirmed acetaminophen 500 mg tablet 500 mg PO Q6H PRN 06/08/20 amoxicillin 500 mg tablet 500 mg PO BID 06/08/20 cetirizine 10 mg tablet 10 mg PO DAILY 06/08/20 cyclobenzaprine 10 mg tablet 10 mg PO Q8H PRN 06/08/20 fluticasone propionate 50 1 spray INTRANASAL BID 06/08/20 mcg/actuation nasal spray,suspension omeprazole 20 mg capsule,delayed 20 mg PO DAILY 06/08/20 release Previous Rx's Medication Instructions Recorded amoxicillin 875 mg-potassium 1 tab PO BID 7 Days #14 tab 06/08/20 clavulanate 125 mg tablet cyclobenzaprine 10 mg tablet 10 mg PO TID PRN #10 tab 08/15/20 ibuprofen 600 mg tablet 600 mg PO TID PRN #10 tab 08/15/20 cyclobenzaprine 10 mg tablet 10 mg PO TID PRN #14 tab 04/22/21 ibuprofen 600 mg tablet 600 mg PO TID PRN #10 tab 04/22/21 Allergies Allergy/AdvReac Type Severity Reaction Status Date / Time ciprofloxacin [From CIPRO] Allergy Unknown PT UNABLE Verified 04/03/21 16:12 TO RECALL THE REACTION SHE HAD tramadol [TRAMADOL] Allergy Unknown UNK Verified 04/03/21 16:12 Review of Systems Review of Systems: Constitutional: No Fever, No Chills ENT/Mouth: No Ear Pain, + Nasal Congestion, No Hoarseness, + sore throat, + Rhinorrhea, No Swallowing Difficulty Cardiovascular: No Chest Pain, + SOB Respiratory: + Cough, No Sputum, No Wheezing Gastrointestinal: No Nausea, No Vomiting, No Diarrhea, No Constipation, No Abdominal pain Genitourinary: No Dysuria, No Urinary Frequency, No Hematuria, No Flank Pain Musculoskeletal: No joint pain, No Myalgias, No Joint Swelling Skin: No Skin Lesions, No rash Neuro: No Weakness, No Numbness, +headache Yes all other systems are reviewed and are negative [facility] Past Medical History Attestation statement: The following information was validated with the patient. Social History Social History Alcohol intake: never Patient Tobacco Use Status: Never used Tobacco Advance Directives: No Advance Directives Information Provided: No Physical Exam Vital Signs: Vital Signs: Last Vital Signs Temp 97.5 F 05/23/21 11:29 Pulse 92 05/23/21 11:29 Resp 18 05/23/21 11:29 BP 110/70 05/23/21 11:29 Pulse Ox 99 05/23/21 11:29 BMI result Body Mass Index 28.3 Const: General: cooperative, healthy appearing, no acute distress, alert and awake Orientation/consciousness: patient oriented x3 Limitations: no limitations HENMT: Head: Yes normal to inspection Ears: hearing grossly normal bilaterally, external ears normal and TM's normal bilaterally General nose exam: Normal external nose present Face and sinus: Yes normal facial exam Mouth: Normal oral and palatal mucosa present Throat: Yes posterior oropharynx normal, Yes uvula midline, No abnormal tonsil, No peritonsillar mass and No uvula laterally displaced Eyes: General: appearance normal, both eyes and all related structures EOM: EOMs intact bilaterally Neck: Neck: Yes normal visual inspection, Yes no lymphadenopathy, Yes no meningeal signs and Yes supple Resp: Effort & Inspection: normal respiratory effort and no respiratory distress Auscultation: clear to auscultation bilaterally, no rales, no rhonchi and no wheezes Cardio: Rate: regular rate Heart sounds: S1 normal heart sound present and S2 normal heart sound present GI: Inspection: Yes normal to inspection Palpation (GI): Soft to palpation, nontender, no guarding and not rigid Skin: Rashes: no rashes Wounds: no wounds Neuro: General: patient oriented x3 and no meningeal signs Gait exam (Neuro): Normal gait present Extrem: General: Yes normal to inspection Course Course Course Narrative: 1259--rapid strep negative. Influenza negative. COVID-19 negative. XR chest 1V IMPRESSION: No acute disease within the chest. No focal consolidation. UA negative > results discussed with patient including worsening signs and symptoms and strict return precautions and need to follow-up with PCP MDM - URI/Sore Throat MDM Narrative Medical decision making narrative: 51-year-old female with no significant past medical history presenting to the ED complaining of headache, nasal congestion, rhinorrhea, sore throat, cough, mild SOB, and dysuria x3 days. On exam vital signs stable, NAD/well-appearing, lungs CTA, or pharynx WNL, abdomen soft/nontender fever concern for viral syndrome including COVID-19 and influenza vs strep pharyngitis. R/o UTI Plan: COVID-19 testing, influenza testing, rapid strep, UA Differential Diagnosis Differential diagnosis: Likely upper respiratory infection, viral infection, bronchitis, influenza and pharyngitis Medical Records Attestation: I reviewed the patient's medical records. Lab Data Attestation: I reviewed the patient's lab results. Labs: Lab Results 05/23/21 05/23/21 05/23/21 Range/Units 11:32 11:32 12:19 Urine Color Urine Appearance Urine pH (5.0-8.0) Ur Specific [place] (1.005-1.025) Urine Protein (NEG-TRACE) MG/DL Urine Glucose (UA) (NEG) MG/DL Urine Ketones (NEG) MG/DL Urine Blood (NEG) Urine Nitrite (NEG) Ur Leukocyte Esterase (NEG) COVID-19 ([place]) Negative (Negative) COVID-19 Clin Com See Note Influenza Type A ([place]) Negative (Negative) Influenza Type B ([place]) Negative (Negative) Influenza A & B Note See Note S. pyogenes GrpA [place] Negative (Negative) 05/23/21 Range/Units 12:20 Urine Color YELLOW Urine Appearance CLEAR Urine pH 6.0 (5.0-8.0) Ur Specific [place] 1.015 (1.005-1.025) Urine Protein NEG (NEG-TRACE) MG/DL Urine Glucose (UA) NEG (NEG) MG/DL Urine Ketones NEG (NEG) MG/DL Urine Blood NEG (NEG) Urine Nitrite NEG (NEG) Ur Leukocyte Esterase NEG (NEG) COVID-19 ([place]) (Negative) COVID-19 Clin Com Influenza Type A ([place]) (Negative) Influenza Type B ([place]) (Negative) Influenza A & B Note S. pyogenes GrpA [place] (Negative) Discharge Plan Discharge Clinical Impression: Viral infection Patient Disposition: Home, Self-Care Instructions: Viral Syndrome (ED) Additional Instructions: You tested negative for the flu, COVID-19, and strep throat Her chest x-ray is unremarkable Your urine is not infected Rest, stay hydrated, placed follow-up with her doctor Take Tylenol and Motrin as needed If her symptoms persist or worsen, he develops fevers unresolved with medications, shortness of breath or chest discomfort please return to the ED Prescriptions: No Action cyclobenzaprine 10 mg tablet 10 mg PO TID PRN (Reason: muscle spasm) Qty: 10 0RF ibuprofen 600 mg tablet 600 mg PO TID PRN (Reason: pain) Qty: 10 0RF cyclobenzaprine 10 mg tablet 10 mg PO TID PRN (Reason: muscle spasm) Qty: 14 0RF ibuprofen 600 mg tablet 600 mg PO TID PRN (Reason: pain) Qty: 10 0RF fluticasone propionate 50 mcg/actuation spray,suspension 1 spray intranasal BID 0RF cetirizine 10 mg tablet 10 mg PO DAILY 0RF omeprazole 20 mg capsule,delayed release(DR/EC) 20 mg PO DAILY 0RF amoxicillin 500 mg tablet 500 mg PO BID 0RF cyclobenzaprine 10 mg tablet 10 mg PO Q8H PRN (Reason: muscle spasm) 0RF acetaminophen 500 mg tablet 500 mg PO Q6H PRN (Reason: pain) 0RF amoxicillin-pot clavulanate 875-125 mg tablet 1 tab PO BID 7 Days Qty: 14 0RF Referrals: Brianna Salazar MD [Primary Care Provider] - 3 days
[2021-05-23 12:28] LABS: Appearance Urine CLEAR; Color Urine YELLOW; Glucose Urine UA NEG (NEG); Leukocyte Esterase Urine NEG (NEG); Nitrite Urine NEG (NEG); Specific Gravity - Urine 1.015 (1.005-1.025); Urine Blood NEG (NEG); Urine Ketones NEG (NEG); Urine Protein NEG (NEG-TRACE)
[2021-05-23 12:50] LABS: IDNOW Serial# 08D9AD1C; Strep A Nucleic Acid Negative (Negative)
[2021-05-23] MEDS: Ibuprofen 400 MG TABLET PO (13:12)
== END 2021-05-23 13:15 | disposition home or self-care (01) ==
PROVIDERS: Physician Assistant; Emergency Provider Emergency Medicine; PCP Internal Medicine
DX: J06.9 Acute upper respiratory infection, unspecified (principal); Z20.822 Contact with and (suspected) exposure to COVID-19; Z79.899 Other long term (current) drug therapy
CPT/HCPCS: 36415; 71045; 81003; 87502; 87635; 87651; 99284

== ENCOUNTER 2021-09-28 19:05 | Emergency (ER) | payer OTHER, SELFPAY ==
--- NOTE | 2021-09-28 | ECG_ITS ---
Test Reason : CHEST PAIN Blood Pressure : / mmHG Vent. Rate : 088 BPM Atrial Rate : 088 BPM P-R Int : 144 ms QRS Dur : 082 ms QT Int : 374 ms P-R-T Axes : 048 033 045 degrees QTc Int : 452 ms Normal sinus rhythm Normal ECG When compared with ECG of 06-AUG-2011 12:29, No significant change was found Referred By: Generic ED Physician Electronically Signed By:Nasim Kaba
--- NOTE | ~2021-09-28 | XR_ITS ---
EXAMINATION: XR chest 2V CLINICAL INFORMATION: Reason for Exam chest pain COMPARISON: Chest radiograph 05/23/2021 TECHNIQUE: 2 views of the chest FINDINGS: Clear lungs. No pneumothorax or pleural effusion. Normal cardiomediastinal silhouette. XR/XR chest 2V Impression: * Clear lungs.
[2021-09-28 19:26] LABS: MANUAL DIFF FLAG NO
[2021-09-28 19:33] VITALS: BP 115/67; PULSE 92; RESP 18; TEMP 36; O2SAT 98; BMI 30.5
[2021-09-28 19:34] LABS: Basophils Percent Auto 0.3 % (0-2); Eosinophils Absolute Auto 0.3 X10*3/uL (0.0-0.4); Eosinophils Percent Auto 2.1 % (0-4); Hematocrit 37.9 % (37.0-47.0); Hemoglobin 12.2 g/dl (12.0-16.0); Imm Gran Abs Auto 0.04 X10*3/uL (0.00-0.03); Imm Gran Pct Auto 0.3 % (0.0-0.4); Lymphocytes Absolute Auto 2.6 X10*3/uL (1.2-4.9); Mean Corpuscular HGB Conc 32.2 g/dl (31.0-35.0); Mean Corpuscular Hemoglobin 29.8 pg (27.0-33.0); Mean Corpuscular Volume 92.7 fL (80.0-98.0); Mean Platelet Volume 8.6 fL (9.4-12.3); Monocytes Absolute Auto 0.8 X10*3/uL (0.1-1.2); Monocytes Percent Auto 5.9 % (2-11); Neutrophils Absolute Auto 9.1 x10*3/uL (2.0-8.3); Neutrophils Percent Auto 71.4 % (45-73); Platelet Count 284 X10*3/uL (160-400); Red Blood Count 4.09 X10*6/uL (4.20-5.50); Red Cell Distribution Width 13.2 % (11.0-16.0); White Blood Count 12.8 X10*3/uL (4.8-10.8)
[2021-09-28 19:44] LABS: Alanine Aminotransferase 34 U/L (0-31); Albumin Level 4.2 g/dL (3.5-5.0); Alkaline Phosphatase 78 U/L (39-117); Anion Gap 12 (12-20); Aspartate Amino Transferase 24 U/L (5-31); Bilirubin Total 0.2 mg/dL (0.0-1.0); Blood Urea Nitrogen 10 mg/dL (9-16); Carbon Dioxide 27 mmol/L (22-29); Chloride 103 mmol/L (96-108); Creatinine Clr Calc Pharmacy 88.5; Estimated Glomerular Filt Rate > 60; Glucose Random 152 mg/dL (60-115); Sodium 138 mmol/L (135-145); Total Protein 7.9 g/dL (6.5-8.0)
[2021-09-28 19:48] LABS: Troponin-I High Sensitivity < 3.5 ng/L (<3.5-17.0)
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
[2021-09-28 21:26] LABS: COVID-19 Test Negative (Negative); IDNOW Serial# 55D5AD1C
[2021-09-28 21:30] LABS: Influenza A Negative (Negative); Influenza B2 Negative (Negative)
[2021-09-28 22:00] VITALS: BP 132/87; PULSE 81; RESP 16; TEMP 36.6; O2SAT 98
[2021-09-28] MEDS: Acetaminophen 325 MG TABLET 650 MG PO (22:28)
== END 2021-09-28 23:42 | disposition home or self-care (01) ==
PROVIDERS: Nurse Practitioner Family; Emergency Provider Internal Medicine; PCP Internal Medicine
DX: Z04.1 Encounter for examination and observation following transport accident (principal); R07.89 Other chest pain; R53.81 Other malaise; R53.1 Weakness; M54.2 Cervicalgia; M54.6 Pain in thoracic spine; M79.622 Pain in left upper arm; M79.621 Pain in right upper arm; M79.605 Pain in left leg; M79.604 Pain in right leg; Z20.822 Contact with and (suspected) exposure to COVID-19; F17.200 Nicotine dependence, unspecified, uncomplicated
CPT/HCPCS: 36415; 71046; 80053; 84484; 85025; 87502; 87635; 93005; 99283; 99284

== ENCOUNTER 2021-11-26 09:50 | Emergency (ER) | payer OTHER, SELFPAY ==
--- NOTE | ~2021-11-26 | XR_ITS ---
EXAMINATION: XR CHEST CLINICAL INFORMATION: Cough. COMPARISON: 09/28/2021 TECHNIQUE: 2 views of the chest were obtained. FINDINGS: No significant abnormality is noted involving the heart, lungs, mediastinum, bony thorax or soft tissues. XR/XR chest 2V IMPRESSION: Unremarkable examination.
[2021-11-26 09:54] VITALS: BP 139/87; PULSE 94; RESP 19; TEMP 37.2; O2SAT 99; BMI 29.9
[2021-11-26 10:58] LABS: COVID-19 Test Negative (Negative); IDNOW Serial# 16C4AD1C; Influenza A Negative (Negative); Influenza B2 Negative (Negative)
--- NOTE | 2021-11-26 12:16 | ED_ITS ---
HPI - URI/Sore Throat General Chief Complaint: Upper Respiratory Symptoms Stated Complaint: fever/SOB/bodyaches/chest pain Time Seen by Provider: 11/26/21 11:06 Source: patient Mode of arrival: ambulatory Limitations: no limitations History of Present Illness HPI Narrative: 51-year-old female presenting to the ER with complaints of subjective fevers, chills, fatigue, malaise, ear pain, sore throat, nasal congestion/rhinorrhea, intermittent headaches, sinus pressure pain, productive cough with intermittent shortness of breath with green-colored sputum for the past 10-11 days. Reports that she had a negative COVID test at home. Reports that she takes care of her grandkids who are under 5 years old. She also has a son who is in school. She denies any measured fevers, dizziness, neck pain/stiffness, chest pain or shortness of breath, dyspnea on exertion, orthopnea, palpitations, paresthesias, lower extremity more calf tenderness, recent travel. She reports that she did have some nausea/vomiting and some diarrhea few days ago which has resolved. She reports that her grand kids have had exposures to sick contacts per her daughter. Although she is not sure what the sick contacts were diagnosed with. She reports her grandkids are up-to-date with all immunizations. She denies any other symptoms complaints or concerns at this time. MD elicited complaint: fever, cough, sore throat, rhinorrhea, nasal congestion and sinus pain Onset (ago): day(s) (10-11 days worse today) Consistency: constant and progressively worsening Severity: moderate Description of mucous: clear, watery, yellow and green Able to tolerate fluids by mouth: Yes Exacerbating factors: swallowing and deep breaths Relieving factors: nothing Context: sick contacts Associated symptoms: fever, chills, myalgias, headache, rhinorrhea, nasal congestion, sore throat, cough, shortness of breath, nausea, vomiting, diarrhea and ear pain Treatments prior to arrival: none Related Data Home Medications Medication Instructions Recorded Confirmed acetaminophen 500 mg tablet 500 mg PO Q6H PRN pain 06/08/20 amoxicillin 500 mg tablet 500 mg PO BID 06/08/20 cetirizine 10 mg tablet 10 mg PO DAILY 06/08/20 cyclobenzaprine 10 mg tablet 10 mg PO Q8H PRN muscle spasm 06/08/20 fluticasone propionate 50 1 spray intranasal BID 06/08/20 mcg/actuation nasal spray,suspension omeprazole 20 mg capsule,delayed 20 mg PO DAILY 06/08/20 release Previous Rx's Medication Instructions Recorded amoxicillin 875 mg-potassium 1 tab PO BID 7 days #14 tabs 06/08/20 clavulanate 125 mg tablet cyclobenzaprine 10 mg tablet 10 mg PO TID PRN muscle spasm #10 08/15/20 tabs ibuprofen 600 mg tablet 600 mg PO TID PRN pain #10 tabs 08/15/20 cyclobenzaprine 10 mg tablet 10 mg PO TID PRN muscle spasm #14 04/22/21 tabs ibuprofen 600 mg tablet 600 mg PO TID PRN pain #10 tabs 04/22/21 acetaminophen 500 mg tablet 500 mg PO Q6H PRN pain or fever 05/23/21 (Tylenol Extra Strength) #20 tabs ibuprofen 400 mg tablet 400 mg PO Q6H 7 days #20 tabs 05/23/21 albuterol sulfate 90 mcg/actuation 1 inh inhalation QID PRN shortness 11/26/21 aerosol inhaler of breath or wheezing #8.5 grams azithromycin 500 mg tablet See Rx Instructions PO .COMPLEX #3 11/26/21 tabs codeine 10 mg-guaifenesin 100 mg/5 5 ml PO Q6H PRN cold symptoms #120 11/26/21 mL oral liquid (Guaifenesin AC) mL Allergies Allergy/AdvReac Type Severity Reaction Status Date / Time ciprofloxacin [From CIPRO] Allergy Unknown PT UNABLE Verified 04/03/21 16:12 TO RECALL THE REACTION SHE HAD tramadol [TRAMADOL] Allergy Unknown UNK Verified 04/03/21 16:12 Review of Systems Review of Systems: Constitutional : + subjective fevers/ch ills/fatigue/malaise, No Weight loss, No Chills, No Night Sweats ENT/Mouth : + ear pain/nasal congestion/rhinorrhea/sinus pressure pain/sore throat, No Hearing loss, No Hoarseness, No Swallowing Difficulty Eyes: No Eye Pain, No Swelling, No Redness, No Foreign Body, No Discharge, No Vision Changes Cardiovascular : No Chest Pain, No SOB, No Dyspnea on Exertion, No Orthopnea, No Edema, No Palpitations Respiratory : + Cough, + Sputum, No Wheezing, No Smoke Exposure, No Dyspnea Gastrointestinal : + resolved Nausea/Vomiting/Diarrhea, No Constipation, No abdominal Pain, No Hematochezia, No Melena Genitourinary : no irregular bleeding, No Dysuria, No Urinary Frequency, No Hematuria, No Urinary Incontinence, No Urgency, No Flank Pain, No Urinary Flow Changes, No Hesitancy Musculoskeletal : No joint pain, + Myalgias, No Joint Swelling Skin : No Skin Lesions, No rash Neuro : No Weakness, No Numbness, No Paresthesias, No Loss of Consciousness, No Dizziness, No Headache Psych : No Anxiety/Panic, No Depression, No SI/HI/AH/VH, No Social Issues, Heme/Lymph: No Bruising, No Bleeding,No Lymphadenopathy Endocrine : No Polyuria, No Polydipsia, No Temperature Intolerance Yes all other systems are reviewed and are negative [facility] Past Medical History Attestation statement: The following information was validated with the patient. Source: old records reviewed and nursing notes reviewed Social History Social History Alcohol intake: never Patient Tobacco Use Status: Current everyday Tobacco user Advance Directives: No Advance Directives Information Provided: Yes Physical Exam Vital Signs: Vital Signs: Last Vital Signs Temp 99 F 11/26/21 09:54 Pulse 94 11/26/21 09:54 Resp 19 11/26/21 09:54 BP 139/87 11/26/21 09:54 Pulse Ox 99 11/26/21 09:54 BMI result Body Mass Index 29.9 vital signs have been reviewed as normal and appeared to be correct. Blood pressure normal. Heart rate normal. Respiration rate normal. Temperature normal. Oxygen saturation normal. Appearance: Alert. Oriented X3. No acute distress. Head: Normal external exam. Normocephalic. Atraumatic. Eyes: PERRLA. EOMI. Conjunctiva and sclera normal. Eyelids normal. ENT: EAC normal. TM's Normal. Pharynx normal. Uvula midline. Moist mucous membranes. No lesions/ulcerations or masses noted on the tongue. Normal voice. No trismus noted. No drooling noted. No muffled voice noted. Neck: Normal inspection. Neck supple. FROM. No adenopathy. Thyroid Normal. No tracheal deviation noted. No crepitus is noted. No meningeal signs. No neck mass noted. No signs of trauma noted. CVS: Normal heart rate and rhythm. Heart sound normal. Pulses normal throughout. No murmurs/rales/gallops. Respiratory: No respiratory distress. Painless inspiration. Breath sounds alek l. No wheezes/rales/rhonchi noted. Chest nontender. No crepitus is noted. No accessory muscle usage noted or decreased air movement noted. No signs of trauma. Abdomen: Soft and nontender. Nondistended. No guarding. No rigidity. Bowel sounds normal in all 4 quadrants. No distention noted. No organomegaly noted. No visible injury noted. No rebound tenderness. Negative Rovsing sign. Negative obturator's sign. Negative psoas sign. Negative Pike sign. Back: Full range of motion noted. Nontender. Skin: Skin warm and dry. Normal skin color. Normal skin turgor. No rashes/lesions/lacerations noted. Extremities: No lower extremity edema. No calf tenderness is noted. Extremities exhibit normal range of motion and nontender. Neuro: Oriented X 3. No motor deficit. No sensory deficit. Reflexes normal. Normal steady gait. No focal neuro deficits noted. CN's II-XII intact bilaterally? Vascular: + radial pulses/+ 2 distal pedal pulses/+2 dorsalis pedis b/l. Normal cap refill. No cyanosis noted to upper extremity nails and lower extremity toes nails. Course Course Course Narrative: 51-year-old female presenting to the ER with complaints of subjective fevers, chills, fatigue, malaise, ear pain, sore throat, nasal congestion/rhinorrhea, intermittent headaches, sinus pressure pain, productive cough with intermittent shortness of breath with green-colored sputum for the past 10-11 days. Reports that she had a negative COVID test at home. Reports that she takes care of her grandkids who are under 5 years old. She also has a son who is in school. She denies any measured fevers, dizziness, neck pain/stiffness, chest pain or shortness of breath, dyspnea on exertion, orthopnea, palpitations, paresthesias, lower extremity more calf tenderness, recent travel. She reports that she did have some nausea/vomiting and some diarrhea few days ago which has resolved. S he reports that her grand kids have had exposures to sick contacts per her daughter. Patient negative for COVID and flu. Will obtain a chest x-ray. Reevaluation(s) Reevaluation #1: - chest x-ray negative. Will DC home antibiotics for possible bronchitis/sinusitis and instructions return if any new or worsening symptoms follow up with primary care provider. Patient understands agrees with this plan. Time: 13:08 [facility] - URI/Sore Throat Medical Records Attestation: I reviewed the patient's medical records. Lab Data Labs: Lab Results 11/26/21 11/26/21 Range/Units 10:00 10:00 COVID-19 ([place]) Negative (Negative) COVID-19 Clin Com See Note Influenza Type A ([facility]) Negative (Negative) Influenza Type B ([facility]) Negative (Negative) Influenza A & B Note See Note Imaging Data Chest x-ray: Attestation: I personally reviewed and interpreted this imaging study as follows: Radiologist's impression: FINDINGS: No significant abnormality is noted involving the heart, lungs, mediastinum, bony thorax or soft tissues. XR/XR chest 2V IMPRESSION: Unremarkable examination. Discharge Plan Discharge Clinical Impression: Bronchitis Patient Disposition: Home, Self-Care Instructions: Acute Bronchitis (ED) Prescriptions: New azithromycin 500 mg tablet See Rx Instructions PO .COMPLEX Qty: 3 0RF Rx Instructions: take 500 mg today (day 1), then 250 mg for 4 days (days 2-5) codeine-guaifenesin [Guaifenesin AC] 10-100 mg/5 mL liquid 5 ml PO Q6H PRN (Reason: cold symptoms) Qty: 120 0RF albuterol sulfate 90 mcg/actuation HFA aerosol inhaler 1 inh inhalation QID PRN (Reason: shortness of breath or wheezing) Qty: 8.5 0RF No Action cyclobenzaprine 10 mg tablet 10 mg PO TID PRN (Reason: muscle spasm) Qty: 10 0RF ibuprofen 600 mg tablet 600 mg PO TID PRN (Reason: pain) Qty: 10 0RF acetaminophen [Tylenol Extra Strength] 500 mg tablet 500 mg PO Q6H PRN (Reason: pain or fever) Qty: 20 0RF ibuprofen 400 mg tablet 400 mg PO Q6H 7 Days Qty: 20 0RF cyclobenzaprine 10 mg tablet 10 mg PO TID PRN (Reason: muscle spasm) Qty: 14 0RF ibuprofen 600 mg tablet 600 mg PO TID PRN (Reason: pain) Qty: 10 0RF fluticasone propionate 50 mcg/actuation spray,suspension 1 spray intranasal BID cetirizine 10 mg tablet 10 mg PO DAILY omeprazole 20 mg capsule,delayed release(DR/EC) 20 mg PO DAILY amoxicillin 500 mg tablet 500 mg PO BID cyclobenzaprine 10 mg tablet 10 mg PO Q8H PRN (Reason: muscle spasm) acetaminophen 500 mg tablet 500 mg PO Q6H PRN (Reason: pain) amoxicillin-pot clavulanate 875-125 mg tablet 1 tab PO BID 7 Days Qty: 14 0RF Referrals: Physician,Unknown J [Primary Care Provider] - 2 days (your pcp) Print Language: Qatari
== END 2021-11-26 13:25 | disposition home or self-care (01) ==
PROVIDERS: Emergency Provider Emergency Medicine Emergency Medical Services
DX: J40 Bronchitis, not specified as acute or chronic (principal); Z20.822 Contact with and (suspected) exposure to COVID-19; F17.200 Nicotine dependence, unspecified, uncomplicated
CPT/HCPCS: 71046; 87502; 87635; 99282; 99283

== ENCOUNTER 2022-01-04 10:29 | Emergency (ER) | payer OTHER, SELFPAY ==
[2022-01-04 11:03] VITALS: BP 144/83; PULSE 85; RESP 20; TEMP 36.8; O2SAT 98; BMI 29.9
[2022-01-04 11:33] LABS: Strep A Nucleic Acid Negative (Negative)
[2022-01-04 12:10] LABS: Influenza A PCR NEGATIVE (Negative); Influenza B PCR NEGATIVE (Negative); Resp Syncy Virus RNA Qual PCR NEGATIVE (Negative); SARS COV2 PCR INHOUSE NEGATIVE (Negative)
--- NOTE | 2022-01-04 13:16 | ED.URI ---
HPI - URI/Sore Throat General Chief Complaint: Upper Respiratory Symptoms Stated Complaint: Head Throat Pain Time Seen by Provider: 01/04/22 13:07 Source: patient Mode of arrival: ambulatory Limitations: no limitations History of Present Illness HPI Narrative: 51yoF c PMHx ovarian cyst, this functional uterine bleeding and COVID-19 presenting to the ER with complaints of generalized fatigue/malaise, nasal congestion/rhinorrhea, sore throat and a dry cough with shortness of breath for the past 2 days worse today. Denies recent travel or sick contacts that she is aware of. She reports she takes care of her grand babies and her grandbaby is teething she does not believe her grandbaby is sick. She denies any measured fevers, dizziness, neck pain/stiffness, trouble swallowing, chest pain or dyspnea on exertion, orthopnea palpitations, nausea/vomiting/diarrhea constipation on black or bloody stools, lower extremity edema or calf tenderness or any other symptoms complaints or concerns at this time. MD elicited complaint: cough, sore throat, rhinorrhea and nasal congestion Onset (ago): day(s) (2) Consistency: constant and progressively worsening Severity: mild Description of mucous: clear, watery, yellow and green Able to tolerate fluids by mouth: Yes Exacerbating factors: swallowing and deep breaths Relieving factors: nothing Associated symptoms: chills, myalgias, headache, rhinorrhea, nasal congestion, sore throat, cough, shortness of breath and ear pain Treatments prior to arrival: other ([id number] medication no symptomatic relief along with her albuterol inhaler and nebulizers prior to arrival) Related Data Home Medications Medication Instructions Recorded Confirmed acetaminophen 500 mg tablet 500 mg PO Q6H PRN pain 06/08/20 amoxicillin 500 mg tablet 500 mg PO BID 06/08/20 cetirizine 10 mg tablet 10 mg PO DAILY 06/08/20 cyclobenzaprine 10 mg tablet 10 mg PO Q8H PRN muscle spasm 06/08/20 fluticasone propionate 50 1 spray intranasal BID 06/08/20 mcg/actuation nasal spray,suspension omeprazole 20 mg capsule,delayed 20 mg PO DAILY 06/08/20 release Previous Rx's Medication Instructions Recorded amoxicillin 875 mg-potassium 1 tab PO BID 7 days #14 tabs 06/08/20 clavulanate 125 mg tablet cyclobenzaprine 10 mg tablet 10 mg PO TID PRN muscle spasm #10 08/15/20 tabs ibuprofen 600 mg tablet 600 mg PO TID PRN pain #10 tabs 08/15/20 cyclobenzaprine 10 mg tablet 10 mg PO TID PRN muscle spasm #14 04/22/21 tabs ibuprofen 600 mg tablet 600 mg PO TID PRN pain #10 tabs 04/22/21 acetaminophen 500 mg tablet 500 mg PO Q6H PRN pain or fever 05/23/21 (Tylenol Extra Strength) #20 tabs ibuprofen 400 mg tablet 400 mg PO Q6H 7 days #20 tabs 05/23/21 albuterol sulfate 90 mcg/actuation 1 inh inhalation QID PRN shortness 11/26/21 aerosol inhaler of breath or wheezing #8.5 grams azithromycin 500 mg tablet See Rx Instructions PO .COMPLEX #3 11/26/21 tabs codeine 10 mg-guaifenesin 100 mg/5 5 ml PO Q6H PRN cold symptoms #120 11/26/21 mL oral liquid (Guaifenesin AC) mL albuterol sulfate 0.63 mg/3 mL 0.63 mg (3 mL) inhalation QID PRN 01/04/22 solution for nebulization shortness of breath or wheezing #75 mL albuterol sulfate 90 mcg/actuation 1 inh inhalation QID PRN shortness 01/04/22 aerosol inhaler of breath or wheezing #8.5 grams amoxicillin 875 mg-potassium 1 tab PO BID 7 days #14 tabs 01/04/22 clavulanate 125 mg tablet codeine 10 mg-guaifenesin 100 mg/5 5 ml PO Q6H PRN cold symptoms #120 01/04/22 mL oral liquid (Guaifenesin AC) mL prednisone 20 mg tablet 40 mg PO DAILY rash 5 days #10 tabs 01/04/22 Allergies Allergy/AdvReac Type Severity Reaction Status Date / Time ciprofloxacin [From CIPRO] Allergy Unknown PT UNABLE Verified 04/03/21 16:12 TO RECALL THE REACTION SHE HAD tramadol [TRAMADOL] Allergy Unknown UNK Verified 04/03/21 16:12 Review of Systems Review of Systems: Constitutional : + generalized fatigue/malaise, No Weight loss, No Fever, No Chills, No Night Sweats ENT/Mouth : + ear pain/nasal congestion/rhinorrhea/sore throat, No Hearing loss, No Sinus Pain, No Hoarseness, No Swallowing Difficulty Eyes: No Eye Pain, No Swelling, No Redness, No Foreign Body, No Discharge, No Vision Changes Cardiovascular : No Chest Pain, + SOB, No Dyspnea on Exertion, No Orthopnea, No Edema, No Palpitations Respiratory : + Cough, No Sputum, No Wheezing, No Smoke Exposure, No Dyspnea Gastrointestinal : No Nausea, No Vomiting, No Diarrhea, No Constipation, No abdominal Pain, No Hematochezia, No Melena Genitourinary : no irregular bleeding, No Dysuria, No Urinary Frequency, No Hematuria, No Urinary Incontinence, No Urgency, No Flank Pain, No Urinary Flow Changes, No Hesitancy Musculoskeletal : No joint pain, No Myalgias, No Joint Swelling Skin : No Skin Lesions, No rash Neuro : No Weakness, No Numbness, No Paresthesias, No Loss of Consciousness, No Dizziness, No Headache Psych : No Anxiety/Panic, No Depression, No SI/HI/AH/VH, No Social Issues, Heme/Lymph: No Bruising, No Bleeding,No Lymphadenopathy Endocrine : No Polyuria, No Polydipsia, No Temperature Intolerance Yes all other systems are reviewed and are negative [facility] Past Medical History Attestation statement: The following information was validated with the patient. Source: old records reviewed and nursing notes reviewed Social History Social History Alcohol intake: never Patient Tobacco Use Status: Current everyday Tobacco user Advance Directives: No Physical Exam Vital Signs: Vital Signs: Last Vital Signs Temp 98.2 F 01/04/22 11:03 Pulse 85 01/04/22 11:03 Resp 20 01/04/22 11:03 BP 144/83 H 01/04/22 11:03 Pulse Ox 98 01/04/22 11:03 O2 Del Method 01/04/22 11:03 BMI result Body Mass Index 29.9 vital signs have been reviewed as normal and appeared to be correct. Blood pressure normal. Heart rate normal. Respiration rate normal. Temperature normal. Oxygen saturation normal. Appearance: Alert. Oriented X3. No acute distress. Head: Normal external exam. Normocephalic. Atraumatic. Eyes: PERRLA. EOMI. Conjunctiva and sclera normal. Eyelids normal. ENT: EAC normal. TM's Normal. Pharynx normal. Uvula midline. Moist mucous membranes. No lesions/ulcerations or masses noted on the tongue. Normal voice. No trismus noted. No drooling noted. No muffled voice noted. Neck: Normal inspection. Neck supple. FROM. No adenopathy. Thyroid Normal. No tracheal deviation noted. No crepitus is noted. No meningeal signs. No neck mass noted. No signs of trauma noted. CVS: Normal heart rate and rhythm. Heart sound normal. Pulses normal throughout. No murmurs/rales/gallops. Respiratory: No respiratory distress. Painless inspiration. Breath sounds normal. No wheezes/rales/rhonchi noted. Chest nontender. No crepitus is noted. No accessory muscle usage noted or decreased air movement noted. No signs of trauma. Back: Full range of motion noted. Skin: Skin warm and dry. Normal skin color. Normal skin turgor. No rashes/lesions/lacerations noted. Extremities: Extremities exhibit normal range of motion and nontender. Neuro: Oriented X 3. No motor deficit. No sensory deficit. Reflexes normal. Normal steady gait. No focal neuro deficits noted. CN's II-XII intact bilaterally? Vascular: + radial pulses/+ 2 distal pedal pulses/+2 dorsalis pedis b/l. Normal cap refill. No cyanosis noted to upper extremity nails and lower extremity toes nails. Course Course Course Narrative: 51yoF c PMHx ovarian cyst, this functional uterine bleeding and COVID-19 presenting to the ER with complaints of generalized fatigue/malaise, nasal congestion/rhinorrhea, sore throat and a dry cough with shortness of breath for the past 2 days worse today. Denies recent travel or sick contacts that she is aware of. Patient negative for COVID/RSV/flu. Patient negative for strep. Will treat for upper respiratory infection with instructions return if any new or worsening symptoms follow up with primary care provider. Patient understands agrees with this plan. MDM - URI/Sore Throat Medical Records Attestation: I reviewed the patient's medical records. Lab Data Attestation: I reviewed the patient's lab results. Labs: Lab Results 01/04/22 01/04/22 Range/Units 11:08 11:08 Influenza Type A (PCR) NEGATIVE (Negative) Influenza Type B (PCR) NEGATIVE (Negative) RSV RNA Qual (PCR) NEGATIVE (Negative) SARS-CoV-2 RNA (RT-PCR) NEGATIVE (Negative) S. pyogenes GrpA [facility] Negative (Negative) Discharge Plan Discharge Clinical Impression: Acute upper respiratory infection Patient Disposition: Home, Self-Care Instructions: Upper Respiratory Infection (ED) Prescriptions: New amoxicillin-pot clavulanate 875-125 mg tablet 1 tab PO BID 7 Days Qty: 14 0RF albuterol sulfate 0.63 mg/3 mL solution for nebulization 0.63 mg inhalation QID PRN (Reason: shortness of breath or wheezing) Qty: 75 0RF prednisone 20 mg tablet 40 mg PO DAILY 5 Days Qty: 10 0RF codeine-guaifenesin [Guaifenesin AC] 10-100 mg/5 mL liquid 5 ml PO Q6H PRN (Reason: cold symptoms) Qty: 120 0RF albuterol sulfate 90 mcg/actuation HFA aerosol inhaler 1 inh inhalation QID PRN (Reason: shortness of breath or wheezing) Qty: 8.5 0RF No Action cyclobenzaprine 10 mg tablet 10 mg PO TID PRN (Reason: muscle spasm) Qty: 10 0RF ibuprofen 600 mg tablet 600 mg PO TID PRN (Reason: pain) Qty: 10 0RF acetaminophen [Tylenol Extra Strength] 500 mg tablet 500 mg PO Q6H PRN (Reason: pain or fever) Qty: 20 0RF ibuprofen 400 mg tablet 400 mg PO Q6H 7 Days Qty: 20 0RF azithromycin 500 mg tablet See Rx Instructions PO .COMPLEX Qty: 3 0RF Rx Instructions: take 500 mg today (day 1), then 250 mg for 4 days (days 2-5) codeine-guaifenesin [Guaifenesin AC] 10-100 mg/5 mL liquid 5 ml PO Q6H PRN (Reason: cold symptoms) Qty: 120 0RF albuterol sulfate 90 mcg/actuation HFA aerosol inhaler 1 inh inhalation QID PRN (Reason: shortness of breath or wheezing) Qty: 8.5 0RF cyclobenzaprine 10 mg tablet 10 mg PO TID PRN (Reason: muscle spasm) Qty: 14 0RF ibuprofen 600 mg tablet 600 mg PO TID PRN (Reason: pain) Qty: 10 0RF fluticasone propionate 50 mcg/actuation spray,suspension 1 spray intranasal BID cetirizine 10 mg tablet 10 mg PO DAILY omeprazole 20 mg capsule,delayed release(DR/EC) 20 mg PO DAILY amoxicillin 500 mg tablet 500 mg PO BID cyclobenzaprine 10 mg tablet 10 mg PO Q8H PRN (Reason: muscle spasm) acetaminophen 500 mg tablet 500 mg PO Q6H PRN (Reason: pain) amoxicillin-pot clavulanate 875-125 mg tablet 1 tab PO BID 7 Days Qty: 14 0RF Referrals: Physician,Unknown J [Physician] - 2 days (your pcp) Interventions: ED Discharge Assessment Last Done: 01/04/22 13:21 Discharge Date/Time: 01/04/22 13:30 Print Language: Estonian
--- OUTSIDE RECORDS SUMMARY | 2022-01-04 13:23 | XMS_ITS | Continuity of Care Document ---
:1970 Author Organization [facility] Address [address] [place] [id number]- Care Team Providers Name Role Phone Edie Tolbert DO Primary Care Physician Encounter [facility] ACCT R [id number] Date(s): 01/19/21 - 03/13/21 [facility] [address] [place] [id number]- Attending Physician: Gia Galindo MD Admitting Physician: Gia Galindo MD Referring Physician: Edie Tolbert DO Allergies, Adverse Reactions, Alerts Substance Reaction Severity Status ciprofloxacin otic GI upset Active traMADol cognitive changes Active Medications HydrOXYzine 0 Refills, Maintenance, 09/15/17 13:38:13 EDT Start Date: 09/15/17 Status: OrderedOmeprazole By Mouth, Daily, 0 Refills, Maintenance, 06/29/17 9:31:50 EDT Start Date: 06/29/17 Status: OrderedProventil HFA 90 mcg/inh inhalation aerosol with adapter 2, puffs, Inhalation, 4 times a day, PRN, Refills 0, Maintenance, 06/29/17 9:32:02 EDT Start Date: 06/29/17 Status: Ordered Problem List Condition Effective Dates Status Health Status Informant Facet arthritis of lumbar Active region(Confirmed) Cervical facet joint Active syndrome(Confirmed) Myofascial muscle pain(Confirmed) Active Social History Social History Type Response Smoking Status Former smoker; Stopped at ag e: 45; entered on: 06/29/17 Sex
--- OUTSIDE RECORDS SUMMARY | 2022-01-04 13:23 | XMS_ITS | Continuity of Care Document ---
:1970 Author Organization [facility] Address [address] [place] [id number]- Care Team Providers Name Role Phone Edie Tolbert DO Primary Care Physician Encounter [facility] [place] Date(s): 08/05/21 - 09/04/21 [facility] [address] [place] [id number] Attending Physician: Tony Lassiter Admitting Physician: Tony Lassiter Referring Physician: Tony Lassiter Allergies, Adverse Reactions, Alerts Substance Reaction Severity Status ciprofloxacin otic GI upset Active traMADol cognitive changes Active Medications Gabapentin Pt. unsure, By Mouth, 0 Refills, Maintenance, 08/05/21 10:18:00 EDT, Partial fill upon patient request if the prescription is for a schedule II opioid drug. Start Date: 08/05/21 Status: OrderedHydrOXYzine 0 Refills, Maintenance, 09/15/17 13:38:13 EDT Start Date: 09/15/17 Status: Orderedibuprofen 200 mg oral capsule 2 capsule = 400 mg, By Mouth, Every 4 hours, PRN for fever, # 120 capsule, 0 Refills, Maintenance, 08/05/21 10:20:00 EDT, Capsule, Partial fill upon patient request if the prescription is for a schedule II opioid drug. Start Date: 08/05/21 Status: OrderedOmeprazole By Mouth, Daily, 0 Refills, Maintenance, 06/29/17 9:31:50 EDT Start Date: 06/29/17 Status: OrderedProventil HFA 90 mcg/inh inhalation aerosol with adapter 2, puffs, Inhalation, 4 times a day, PRN, Refills 0, Maintenance, 06/29/17 9:32:02 EDT Start Date: 06/29/17 Status: OrderedVitamin D3 1000 intl units oral capsule 1 capsule = 25 mcg, By Mouth, Daily, # 100 capsule, 0 Refills, Maintenance, 08/05/21 10:20:00 EDT, Capsule, Partial fill upon patient request if the prescription is for a schedule II opioid drug. Start Date: 08/05/21 Status: Ordered Problem List Condition Effective Dates Status Health Status Informant Facet arthritis of lumbar Active region(Confirmed) Cervical facet joint Active syndrome(Confirmed) Myofascial muscle pain(Confirmed) Active Social History Social History Type Response Smoking Status Former smoker; Stopped at ag e: 45; entered on: 06/29/17 Sex
--- OUTSIDE RECORDS SUMMARY | 2022-01-04 13:23 | XMS_ITS | Continuity of Care Document ---
:1970 Author Organization [facility] Address [address] [place] [id number]- Care Team Providers Name Role Phone Edie Tolbert DO Primary Care Physician [place] [facility] Date(s): 07/09/21 - 08/08/21 [facility] [address] [place] [id number]- Allergies, Adverse Reactions, Alerts Substance Reaction Severity [...]
--- OUTSIDE RECORDS SUMMARY | 2022-01-04 13:23 | XMS_ITS | Continuity of Care Document ---
:1970 Author Organization [facility] Address [address] [place] [id number]- Care Team Providers Name Role Phone Edie Tolbert DO Primary Care Physician Encounter [facility] [place] Date(s): 05/26/21 - 06/25/21 [facility] [address] [place] [id number] Attending Physician: Tony Lassiter Admitting Physician: Tony [...]
--- OUTSIDE RECORDS SUMMARY | 2022-01-04 13:23 | XMS_ITS | Continuity of Care Document ---
:1970 Author Organization [facility] Address [address] [place] [phone]- Care Team Providers Name Role Phone Edie Tolbert DO Primary Care Physician [place] [facility] [place] [facility] [place] [id number] Date(s): 10/20/21 - 11/19/21 [facility] [address] [place] [id number]- Allergies, Adverse Reactions, Alerts Substance Reaction Severity [...] ag e: 45; entered on: 06/29/17 Sex Care Team PersonnelName: Edie Tolbert DO Address: [address] [place] [address]
== END 2022-01-04 13:30 | disposition home or self-care (01) ==
LOC: HO.ED 13:21
PROVIDERS: Emergency Provider Emergency Medicine Emergency Medical Services; PCP Internal Medicine
DX: J06.9 Acute upper respiratory infection, unspecified (principal); M79.10 Myalgia, unspecified site; R51.9 Headache, unspecified; R05.9 Cough, unspecified; Z20.822 Contact with and (suspected) exposure to COVID-19; Z79.899 Other long term (current) drug therapy; F17.200 Nicotine dependence, unspecified, uncomplicated; Z71.6 Tobacco abuse counseling
CPT/HCPCS: 0241U; 87651; 99283; 99284

== ENCOUNTER 2022-12-29 12:03 | Emergency (ER) | payer OTHER, SELFPAY ==
--- NOTE | ~2022-12-29 | XR_ITS ---
EXAMINATION: XR CHEST 2 VIEW CLINICAL INFORMATION: Cough, shortness of breath COMPARISON: 11/26/2021 TECHNIQUE: PA and lateral views of the chest obtained. FINDINGS: The lungs are clear. There are no pleural effusions. The cardiomediastinal silhouette is normal. XR/XR chest 2V IMPRESSION: No acute cardiopulmonary disease.
[2022-12-29 13:09] VITALS: BP 114/75; PULSE 96; RESP 18; TEMP 37.2; O2SAT 99; BMI 31.3
--- NOTE | 2022-12-29 13:09 | ED.SOB ---
HPI - SOB/Dyspnea General Chief Complaint: Upper Respiratory Symptoms Stated Complaint: sob Time Seen by Provider: 12/29/22 14:18 Source: patient, RN notes reviewed and old records reviewed Mode of arrival: ambulatory History of Present Illness HPI Narrative: 52-year-old female with a past medical history of ovarian cyst, dysfunctional uterine bleeding, presenting to the ED complaining of myalgias, ear pain, sore throat, fever T-max 99.9 degrees, headache, dry cough, shortness of breath, and chest pain when coughing since Monday. Admits traveled home from [place] on Monday. Denies known sick contacts. Denies drainage from ears, pedal edema, calf tenderness. MD elicited complaint: shortness of breath, cough and chest pain Related Data Home Medications Medication Instructions Recorded Confirmed acetaminophen 500 mg tablet 500 mg PO Q6H PRN pain 06/08/20 amoxicillin 500 mg tablet 500 mg PO BID 06/08/20 cetirizine 10 mg tablet 10 mg PO DAILY 06/08/20 cyclobenzaprine 10 mg tablet 10 mg PO Q8H PRN muscle spasm 06/08/20 fluticasone propionate 50 1 spray intranasal BID 06/08/20 mcg/actuation nasal spray,suspension omeprazole 20 mg capsule,delayed 20 mg PO DAILY 06/08/20 release Previous Rx's Medication Instructions Recorded amoxicillin 875 mg-potassium 1 tab PO BID 7 days #14 tabs 06/08/20 clavulanate 125 mg tablet cyclobenzaprine 10 mg tablet 10 mg PO TID PRN muscle spasm #10 08/15/20 tabs ibuprofen 600 mg tablet 600 mg PO TID PRN pain #10 tabs 08/15/20 cyclobenzaprine 10 mg tablet 10 mg PO TID PRN muscle spasm #14 04/22/21 tabs ibuprofen 600 mg tablet 600 mg PO TID PRN pain #10 tabs 04/22/21 acetaminophen 500 mg tablet 500 mg PO Q6H PRN pain or fever 05/23/21 (Tylenol Extra Strength) #20 tabs ibuprofen 400 mg tablet 400 mg PO Q6H 7 days #20 tabs 05/23/21 albuterol sulfate 90 mcg/actuation 1 inh inhalation QID PRN shortness 11/26/21 aerosol inhaler of breath or wheezing #8.5 grams azithromycin 500 mg tablet See Rx Instructions PO .COMPLEX #3 11/26/21 tabs codeine 10 mg-guaifenesin 100 mg/5 5 ml PO Q6H PRN cold symptoms #120 11/26/21 mL oral liquid (Guaifenesin AC) mL albuterol sulfate 0.63 mg/3 mL 0.63 mg (3 mL) inhalation QID PRN 01/04/22 solution for nebulization shortness of breath or wheezing #75 mL albuterol sulfate 90 mcg/actuation 1 inh inhalation QID PRN shortness 01/04/22 aerosol inhaler of breath or wheezing #8.5 grams amoxicillin 875 mg-potassium 1 tab PO BID 7 days #14 tabs 01/04/22 clavulanate 125 mg tablet codeine 10 mg-guaifenesin 100 mg/5 5 ml PO Q6H PRN cold symptoms #120 01/04/22 mL oral liquid (Guaifenesin AC) mL prednisone 20 mg tablet 40 mg (2 x 20 mg) PO DAILY rash 5 01/04/22 days #10 tabs benzonatate 100 mg capsule 100 mg PO TID PRN cough #14 caps 12/29/22 fluticasone propionate 50 2 spray intranasal DAILY #16 grams 12/29/22 mcg/actuation nasal spray,suspension (Flonase Allergy Relief) prednisone 20 mg tablet 40 mg (2 x 20 mg) PO DAILY 5 days 12/29/22 #10 tabs Allergies Allergy/AdvReac Type Severity Reaction Status Date / Time ciprofloxacin [From CIPRO] Allergy Unknown PT UNABLE Verified 04/03/21 16:12 TO RECALL THE REACTION SHE HAD tramadol [TRAMADOL] Allergy Unknown UNK Verified 04/03/21 16:12 Review of Systems Review of Systems: Constitutional: +Fever, + Chills, + fatigue ENT/Mouth: + Ear Pain, + Nasal Congestion, No Sinus Pain, No Hoarseness, + sore throat, + Rhinorrhea, No Swallowing Difficulty Cardiovascular: + Chest Pain w/cough, + SOB Respiratory: + Cough, No Sputum, No Wheezing Gastrointestinal: No Nausea, No Vomiting, No Diarrhea, No Constipation, No Abdominal pain Musculoskeletal: No joint pain, + Myalgias, No Joint Swelling Skin: No Skin Lesions, No rash Neuro: No Weakness Yes all other systems are reviewed and are negative Constitutional: Constitutional: Reports as per [facility] Past Medical History Attestation statement: The following information was validated with the patient. Source: old records reviewed Social History Social History Alcohol intake: never Patient Tobacco Use Status: Current everyday Tobacco user Advance Directives: No Physical Exam Vital Signs: Vital Signs: Last Vital Signs Temp 98.9 F 12/29/22 13:09 Pulse 96 12/29/22 13:09 Resp 18 12/29/22 13:09 BP 114/75 12/29/22 13:09 Pulse Ox 99 12/29/22 13:09 O2 Del Method Room Air 12/29/22 13:09 BMI result Body Mass Index 31.3 Const: General: cooperative, healthy appearing and no acute distress Orientation/consciousness: patient oriented x3 Limitations: no limitations HEENT: Head: Yes normal to inspection and Yes atraumatic Ears: hearing grossly normal bilaterally, external ears normal, TM's normal bilaterally and mastoids normal General nose exam: Normal external nose present Face and sinus: Yes normal facial exam Mouth: Normal oral and palatal mucosa present and no drooling Throat: Yes posterior oropharynx normal, Yes tonsils normal, Yes uvula midline, No peritonsillar mass, No uvula laterally displaced and No uvular edema Eyes: General: appearance normal, both eyes and all related structures EOM: EOMs intact bilaterally Neck: Neck: Yes normal visual inspection and Yes no meningeal signs Resp: Effort & Inspection: normal respiratory effort, no respiratory distress and no stridor Auscultation: clear to auscultation bilaterally, no crackles and no wheezes Cardio: Rate: regular rate Heart sounds: S1 normal heart sound present and S2 normal heart sound present Skin: Rashes: no rashes Wounds: no wounds Neuro: General: patient oriented x3, tone normal and no meningeal signs Cranial nerves: Yes CN's II-XII intact bilaterally Gait exam (Neuro): Normal gait present Extrem: General: Yes normal to inspection Course Course Course Narrative: RME: 52yo F w/PMHx ovarian cyst, dysfunctional uterine bleeding, c/o myalgias, ear pain, sore throat, fever 99.9, SMITH, dry cough & SOB since Monday. Also reports CP when coughing. Admits recently traveled from [place] Lungs CTA. Oropharynx WNL, uvula midline, dry cough noted Viral testing, rapid strep, CXR ordered Full HPI, ROS and PE to be performed by primary ED provider. -COVID/flu and rapid strep negative XR chest 2V IMPRESSION: No acute cardiopulmonary disease. Results discussed with patient including worrisome signs and symptoms and strict return precautions, and when to return to the emergency department. They verbalized understanding and feel safe for discharge at this time. Medical Decision Making Medical Decision Making MDM Narrative: 52-year-old female with a past medical history of ovarian cyst, dysfunctional uterine bleeding, presenting to the ED complaining of myalgias, ear pain, sore throat, fever T-max 99.9 degrees, headache, dry cough, shortness of breath, and chest pain when coughing since Monday. On exam vital signs stable, NAD, nontoxic appearing, lungs CTA, oropharynx WNL, uvula midline, TMs WNL. No hypoxia. Concern for viral syndrome versus bronchitis. Rule out pneumonia. Lower suspicion for ACS/PE or dissection Plan: COVID-19/flu, rapid strep, CXR Please refer to course for remaining clinical decision making, interpretation of labs/imaging results, and discussions with consultants and/or family members. Differential Diagnosis Differential Diagnoses: The differential diagnosis associated with the presentation includes As above Lab Data MDM Lab Attestation statement: I reviewed the patient's lab results. Labs: Lab Results 12/29/22 Range/Units 13:38 COVID-19 ([facility]) Negative (Negative) COVID-19 Clin Com See Note Influenza Type A ([facility]) Negative (Negative) Influenza Type B ([facility]) Negative (Negative) Influenza A & B Note See Note S. pyogenes GrpA [facility] Negative (Negative) Independent Interpretation I performed an independent interpretation of an: Plain X-Ray (Appears unremarkable) Radiology Impression Discussion of test interpretation with radiology: I have reviewed the radiologist's reading. External Record Review External record reviewed: Inpatient record, Office record, Outpatient record, Prior outpatient labs, Prior outpatient radiology, Primary care record and Outside ED record Tests considered The following testing was considered but not selected: As above Prescription Management I considered prescription management with: Pain Medication and Antibiotic Discharge Plan Discharge Clinical Impression: Upper respiratory infection, Bronchitis Patient Disposition: Home, Self-Care Instructions: Upper Respiratory Infection (DC), Acute Bronchitis (ED) Additional Instructions: You tested negative for COVID, flu, strep and her x-ray is unremarkable You likely have bronchitis Prednisone as a steroid please take as prescribed Tessalon Griselda for cough Flonase as a nasal decongestant take as needed Rest Stay hydrated If symptoms persist or worsen return to the ED Prescriptions: New prednisone 20 mg tablet 40 mg PO DAILY 5 Days Qty: 10 0RF benzonatate 100 mg capsule 100 mg PO TID PRN (Reason: cough) Qty: 14 0RF fluticasone propionate [Flonase Allergy Relief] 50 mcg/actuation spray,suspension 2 spray intranasal DAILY Qty: 16 0RF Rx Instructions: administer into each nostril No Action cyclobenzaprine 10 mg tablet 10 mg PO TID PRN (Reason: muscle spasm) Qty: 10 0RF ibuprofen 600 mg tablet 600 mg PO TID PRN (Reason: pain) Qty: 10 0RF acetaminophen [Tylenol Extra Strength] 500 mg tablet 500 mg PO Q6H PRN (Reason: pain or fever) Qty: 20 0RF ibuprofen 400 mg tablet 400 mg PO Q6H 7 Days Qty: 20 0RF azithromycin 500 mg tablet See Rx Instructions PO .COMPLEX Qty: 3 0RF Rx Instructions: take 500 mg today (day 1), then 250 mg for 4 days (days 2-5) codeine-guaifenesin [Guaifenesin AC] 10-100 mg/5 mL liquid 5 ml PO Q6H PRN (Reason: cold symptoms) Qty: 120 0RF albuterol sulfate 90 mcg/actuation HFA aerosol inhaler 1 inh inhalation QID PRN (Reason: shortness of breath or wheezing) Qty: 8.5 0RF amoxicillin-pot clavulanate 875-125 mg tablet 1 tab PO BID 7 Days Qty: 14 0RF albuterol sulfate 0.63 mg/3 mL solution for nebulization 0.63 mg inhalation QID PRN (Reason: shortness of breath or wheezing) Qty: 75 0RF prednisone 20 mg tablet 40 mg PO DAILY 5 Days Qty: 10 0RF codeine-guaifenesin [Guaifenesin AC] 10-100 mg/5 mL liquid 5 ml PO Q6H PRN (Reason: cold symptoms) Qty: 120 0RF albuterol sulfate 90 mcg/actuation HFA aerosol inhaler 1 inh inhalation QID PRN (Reason: shortness of breath or wheezing) Qty: 8.5 0RF cyclobenzaprine 10 mg tablet 10 mg PO TID PRN (Reason: muscle spasm) Qty: 14 0RF ibuprofen 600 mg tablet 600 mg PO TID PRN (Reason: pain) Qty: 10 0RF fluticasone propionate 50 mcg/actuation spray,suspension 1 spray intranasal BID cetirizine 10 mg tablet 10 mg PO DAILY omeprazole 20 mg capsule,delayed release(DR/EC) 20 mg PO DAILY amoxicillin 500 mg tablet 500 mg PO BID cyclobenzaprine 10 mg tablet 10 mg PO Q8H PRN (Reason: muscle spasm) acetaminophen 500 mg tablet 500 mg PO Q6H PRN (Reason: pain) amoxicillin-pot clavulanate 875-125 mg tablet 1 tab PO BID 7 Days Qty: 14 0RF Referrals: Brianna Salazar MD [Primary Care Provider] - 3 days
[2022-12-29 13:55] LABS: IDNOW Serial# 08D9AD1C; Strep A Nucleic Acid Negative (Negative)
[2022-12-29 14:06] LABS: COVID-19 Test Negative (Negative); IDNOW Serial# 55D5AD1C; IDNOW Serial# 9DB6401D; Influenza A Negative (Negative); Influenza B2 Negative (Negative)
== END 2022-12-29 14:30 | disposition home or self-care (01) ==
PROVIDERS: Physician Assistant; Emergency Provider Emergency Medicine Emergency Medical Services; PCP Internal Medicine
DX: J06.9 Acute upper respiratory infection, unspecified (principal); J40 Bronchitis, not specified as acute or chronic; J02.9 Acute pharyngitis, unspecified; Z11.52 Encounter for screening for COVID-19; F17.200 Nicotine dependence, unspecified, uncomplicated; Z79.899 Other long term (current) drug therapy
CPT/HCPCS: 71046; 87502; 87635; 87651; 99282; 99283

== ENCOUNTER 2023-03-29 12:09 | Emergency (ER) | payer OTHER, SELFPAY ==
--- NOTE | ~2023-03-29 | CT_ITS ---
EXAMINATION: CT ABDOMEN AND PELVIS WITHOUT CONTRAST CLINICAL INFORMATION: Right flank pain COMPARISON: CT abdomen and pelvis 10/23/2017, pelvic ultrasound 10/23/2017 TECHNIQUE: Multidetector volumetric imaging was performed from the superior aspect of the liver through the pubic symphysis. Sagittal and coronal reformatted images were obtained on the technologist's workstation. This CT examination was performed using dose optimization techniques as appropriate, variously including the following: *Automated exposure control *Adjustment of mA and/or kV according to patient size (this includes techniques or standardized protocols for targeted exams where dose is matched to indication/reason for exam; i.e. extremities or head) *Use of iterative reconstruction technique DLP: 578 mGy-cm FINDINGS: LUNG BASES: Unremarkable. ABDOMINAL AND PELVIC WALL: Diastases of the rectus abdominis musculature. LIVER AND BILIARY TREE: Hypoattenuating hepatic parenchyma compatible with hepatic steatosis with geographic regions of focal fatty sparing. Liver is enlarged measuring 19.8 cm in span. GALLBLADDER: Unremarkable. PANCREAS: Unremarkable. SPLEEN: Unremarkable. ADRENAL GLANDS: Unremarkable. KIDNEYS AND URETERS: Bosniak 1 benign appearing left renal cysts, no imaging follow-up recommended. No hydronephrosis or nephrolithiasis. GASTROINTESTINAL TRACT: Small hiatal hernia. Large and small bowel are unremarkable. Normal appendix. VASCULAR: Unremarkable. LYMPH NODES/PERITONEUM: No lymphadenopathy. FREE FLUID: None. BLADDER: Unremarkable. PELVIC VISCERA: A 3.4 cm simple fluid attenuation and left ovarian cyst, previously 4.1 cm in [address] Myomatous uterus. OSSEOUS STRUCTURES: Unremarkable. CT/CT abdomen pelvis wo IV con IMPRESSION: 1. No hydronephrosis or nephrolithiasis. 2. Hepatomegaly and hepatic steatosis. 3. A 3.4 cm simple fluid attenuation and left ovarian cyst decreased in size from 2018, therefore likely a nonneoplastic cyst. No follow-up imaging recommended.
[2023-03-29 12:28] VITALS: BP 137/76; PULSE 78; RESP 20; TEMP 37; O2SAT 98; BMI 34.8
--- NOTE | 2023-03-29 12:29 | ED.GENADULT ---
HPI - General Adult General Chief complaint: Abdominal Pain Stated complaint: Pain in Kidneys Time Seen by Provider: 03/29/23 16:16 Source: patient Mode of arrival: ambulatory Limitations: no limitations History of Present Illness HPI narrative: Patient is a 52 year old assigned female at with a history of DM and kidney stones presenting to the emergency department today with right flank pain. Patient states that over the last 7 weeks she has had this right sided pain intermittently. Patient states that she follows with a urologist already. Patient denies any dizziness, lightheadedness, abdominal pain, nausea, vomiting, fever, chills, blurry vision, double vision, loss of vision, chest pain, difficulty breathing, shortness of breath, back pain, night sweats, pain with urination, increased urinary frequency, increased urinary urgency, blood in her urine or stool, syncope or a near syncopal episode, recent trauma or falls, bowel incontinence, bladder incontinence, bowel retention, bladder retention, or any other complaints at this time. Onset (ago): week(s) (7) Location: right (flank) Severity: mild Severity scale (1-10): 3 Relieving factors: none Exacerbating factors: none Associated symptoms: denies other symptoms Treatments prior to arrival: none Related Data Home Medications Medication Instructions Recorded Confirmed acetaminophen 500 mg tablet 500 mg PO Q6H PRN pain 06/08/20 amoxicillin 500 mg tablet 500 mg PO BID 06/08/20 cetirizine 10 mg tablet 10 mg PO DAILY 06/08/20 cyclobenzaprine 10 mg tablet 10 mg PO Q8H PRN muscle spasm 06/08/20 fluticasone propionate 50 1 spray intranasal BID 06/08/20 mcg/actuation nasal spray,suspension omeprazole 20 mg capsule,delayed 20 mg PO DAILY 06/08/20 release Previous Rx's Medication Instructions Recorded amoxicillin 875 mg-potassium 1 tab PO BID 7 days #14 tabs 06/08/20 clavulanate 125 mg tablet cyclobenzaprine 10 mg tablet 10 mg PO TID PRN muscle spasm #10 08/15/20 tabs ibuprofen 600 mg tablet 600 mg PO TID PRN pain #10 tabs 08/15/20 cyclobenzaprine 10 mg tablet 10 mg PO TID PRN muscle spasm #14 04/22/21 tabs ibuprofen 600 mg tablet 600 mg PO TID PRN pain #10 tabs 04/22/21 acetaminophen 500 mg tablet 500 mg PO Q6H PRN pain or fever 05/23/21 (Tylenol Extra Strength) #20 tabs ibuprofen 400 mg tablet 400 mg PO Q6H 7 days #20 tabs 05/23/21 albuterol sulfate 90 mcg/actuation 1 inh inhalation QID PRN shortness 11/26/21 aerosol inhaler of breath or wheezing #8.5 grams azithromycin 500 mg tablet See Rx Instructions PO .COMPLEX #3 11/26/21 tabs codeine 10 mg-guaifenesin 100 mg/5 5 ml PO Q6H PRN cold symptoms #120 11/26/21 mL oral liquid (Guaifenesin AC) mL albuterol sulfate 0.63 mg/3 mL 0.63 mg (3 mL) inhalation QID PRN 01/04/22 solution for nebulization shortness of breath or wheezing #75 mL albuterol sulfate 90 mcg/actuation 1 inh inhalation QID PRN shortness 01/04/22 aerosol inhaler of breath or wheezing #8.5 grams amoxicillin 875 mg-potassium 1 tab PO BID 7 days #14 tabs 01/04/22 clavulanate 125 mg tablet codeine 10 mg-guaifenesin 100 mg/5 5 ml PO Q6H PRN cold symptoms #120 01/04/22 mL oral liquid (Guaifenesin AC) mL prednisone 20 mg tablet 40 mg (2 x 20 mg) PO DAILY rash 5 01/04/22 days #10 tabs benzonatate 100 mg capsule 100 mg PO TID PRN cough #14 caps 12/29/22 fluticasone propionate 50 2 spray intranasal DAILY #16 grams 12/29/22 mcg/actuation nasal spray,suspension (Flonase Allergy Relief) prednisone 20 mg tablet 40 mg (2 x 20 mg) PO DAILY 5 days 12/29/22 #10 tabs Allergies Allergy/AdvReac Type Severity Reaction Status Date / Time ciprofloxacin [From CIPRO] Allergy Unknown PT UNABLE Verified 03/29/23 12:33 TO RECALL THE REACTION SHE HAD tramadol [TRAMADOL] Allergy Unknown UNK Verified 03/29/23 12:33 Review of Systems Constitutional: Constitutional: Reports no additional constitutional complaints, Denies chills, Denies fever(s) and Denies night sweats Eyes: Eyes: Reports no additional eye complaints, Denies blurry vision, Denies change in vision, Denies diplopia, Denies eye discharge, Denies loss of vision and Denies eye pain ENT: Denies dizziness Cardiovascular: Cardiovascular: Reports no additional cardiovascular complaints, Denies chest pain, Denies lightheadedness, Denies Loss of Consciousness and Denies dyspnea Respiratory: Respiratory: Reports no additional respiratory complaints and Denies dyspnea Gastrointestinal: Gastrointestinal: Reports no additional gastrointestinal complaints, Denies abdominal pain, Denies melena, Denies hematochezia, Denies change in bowel habits and Denies change in stool character Genitourinary: Genitourinary: Denies hematuria, Denies urinary frequency, Denies dysuria, Denies urinary incontinence, Denies urinary hesitancy and Denies urinary urgency Comments: right sided flank pain Musculoskeletal: Musculoskeletal: Reports no additional musculoskeletal complaints, Denies numbness and Denies tingling Neurologic: Denies dizziness, Denies loss of vision, Denies numbness and Denies tingling Psychiatric: Psychiatric: Reports no additional psychiatric complaints Endocrine: Endocrine: Reports no additional endocrine complaints Hematologic/Lymphatic: Hematologic/Lymphatic: Reports no additional hematologic/lymphatic complaints Allergic/Immunologic: Allergic/Immunologic: Reports no additional allergic/immunologic complaints PMFSH Past Medical History Attestation statement: The following information was validated with the patient. Source: old records reviewed and nursing notes reviewed Onset Date is defined in the Problem List Problems that require an onset date and time if occurred within 24 hrs of arrival to the ED Aortic Dissection and Rupture; Neurologic impairment; Cardiopulmonary Arrest; Endotracheal Intubation; Insertion or Replacement of Mechanical Circulatory Assist Device Social History Social History Alcohol intake: never Patient Tobacco Use Status: Current everyday Tobacco user Advance Directives: No Advance Directives Information Provided: No Physical Exam ED Vital Signs: Vital Signs - 24 hr 03/29/23 12:28 Temperature 98.6 F Pulse Rate 78 Respiratory Rate 20 Blood Pressure 137/76 Pulse Oximetry 98 Oxygen Delivery Method Room Air BMI result Body Mass Index 34.8 Const General: cooperative, no acute distress, alert and awake Nutritional Appearance: well nourished Orientation/consciousness: patient oriented x3 Limitations: no limitations HENMT Head: Yes normal to inspection and Yes atraumatic Ears: hearing grossly normal bilaterally and external ears normal General nose exam: Normal external nose present, no nasal discharge noted and no epistaxis Face and sinus: Yes normal facial exam, No abrasion and No laceration Mouth: Normal oral and palatal mucosa present, no drooling and no muffled voice Eyes General: appearance normal, both eyes and all related structures Periorbital: periorbital findings normal Eyelids: Yes eyelids normal Conjunctivae: conjunctivae normal Pupils: Equal, round and reactive pupils present EOM: EOMs intact bilaterally Neck Neck: Yes normal visual inspection, Yes full ROM and Yes no lymphadenopathy Chest Chest palpation & inspection: normal inspection of the chest Resp Effort & Inspection: normal respiratory effort and able to speak in complete sentences GI Inspection: Yes normal to inspection General: Yes no CVA tenderness Back/Spine/Pelvis Back: no CVA tenderness Neuro General: patient oriented x3 and moves all extremities Cranial nerves: Yes Equal, round and reactive pupils present Cognition (Neuro): normal cognition Motor exam (neuro): 5/5 motor strength present throughout Sensory Exam: Normal double simultaneous stimulation for sensation Coordination: [id number] test normal Extrem General: Yes normal to inspection, Yes full ROM and Yes capillary refill normal Psych Appearance: grossly normal Mental Status: mental status grossly normal Affect: normal affect Attitude: cooperative Thought process: Normal thought process present Thought content: Normal thought content present Insight: Good insight present (Psych) Course Course Course Narrative: RME:?52 yo female here with constant right flank pain radiating to right lower abd x2 days. associated nausea w/o vomiting. denies dysuria, hematuria. hx of kidney stones. 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 recent diagnosis of T2DM, not managed with medications. no CVAT plan for labs, ua, ct Full HPI, ROS and PE to be performed by the primary ED provider. Medications Administered Discontinued Medications Generic Name Dose Route Start Last Admin Trade Name Freq PRN Reason Stop Dose Admin Ketorolac Tromethamine 15 mg 03/29/23 16:20 03/29/23 16:36 Ketorolac Tromethamine 15 Mg/Ml Vial IM 03/29/23 16:21 15 mg ONCE ONE Administration Medical Decision Making Medical Decision Making MDM Narrative: Patient is a 52 year old assigned female at with a history of DM and kidney stones presenting to the emergency department today with right flank pain. Patient's physical exam was unremarkable. Patient's blood work was unremarkable. Patient's urine showed blood but no evidence of infection. Patient's abdomen/pelvis CT showed a right sided ovarian cyst that is smaller than it was in 2018 but was otherwise unremarkable. I explained my physical exam findings as well as all test results to the patient. I answered all questions asked by the patient. I stressed the importance of the patient taking her medication as prescribed. I stressed the importance of the patient following up with her primary care provider and her urologist. I stressed the importance of the patient returning to the emergency department immediately if her symptoms were to worsen or if she were to develop any dizziness, shortness of breath, difficulty breathing, chest pain, blurry vision, loss of vision, nausea, vomiting, abdominal pain, fever, chills, back pain, or any other complaints. Patient verbalized agreement and understanding with this treatment plan and discharge. Differential Diagnosis Differential Diagnoses: The differential diagnosis associated with the presentation includes Kidney stone Ovarian cyst Flank pain UTI Admission/Observation Consideration of admission/observation: Escalation of care including admission/observation considered Patient would have been admitted to the hospital had her work up had any findings where hospital admission was appropriate and her clinical presentation warranted hospital admission. Lab Data [facility] Lab Attestation statement: I reviewed the patient's lab results. My interpretation of these results are in the [facility] Rationale portion of this note. 03/29/23 13:06 03/29/23 13:07 Labs: Lab Results 03/29/23 03/29/23 Range/Units 13:06 13:07 WBC 11.6 H (4.8-10.8) X10*3/uL RBC 4.18 L (4.20-5.50) X10*6/uL Hgb 12.5 (12.0-16.0) g/dl Hct 38.0 (37.0-47.0) % MCV 90.9 (80.0-98.0) fL MCH 29.9 (27.0-33.0) pg MCHC 32.9 (31.0-35.0) g/dl RDW 13.2 (11.0-16.0) % Plt Count 293 (160-400) X10*3/uL MPV 8.6 L (9.4-12.3) fL Immature Gran % (Auto) 0.3 (0.0-0.4) % Neut % (Auto) 70.9 (45-73) % Lymph % (Auto) 20.2 (20-40) % [place]offey % (Auto) 6.3 (2-11) % Eos % (Auto) 1.9 (0-4) % Baso % (Auto) 0.4 (0-2) % Lymph # (Auto) 2.4 (1.2-4.9) X10*3/uL [place]y # (Auto) 0.7 (0.1-1.2) X10*3/uL Eos # (Auto) 0.2 (0.0-0.4) X10*3/uL Baso # (Auto) 0.1 (0.0-0.2) X10*3/uL Abs Immat Gran (auto) 0.04 H (0.00-0.03) X10*3/uL Absolute Neuts (auto) 8.2 (2.0-8.3) x10*3/uL Absolute Nucleated RBC 0.000 (0.0-0.012) X10*3/uL Nucleated RBC % (auto) 0.0 (0.0-0.2) /100WBC Sodium 137 (135-145) mmol/L Potassium 3.7 (3.3-5.1) mmol/L Chloride 105 (96-108) mmol/L Carbon Dioxide 28 (22-29) mmol/L Anion Gap 8 L (12-20) BUN 11 (9-16) mg/dL Creatinine 0.75 (0.5-1.4) mg/dL Estim Creat Clear Calc 91.5 Estimated GFR > 60 Random Glucose 128 H (60-115) mg/dL Calcium 9.5 (8.4-10.2) mg/dL Magnesium 2.2 (1.6-2.6) mg/dL Lipase 18 (8-78) U/L Urine Color Dark Yellow Urine Appearance Cloudy Urine pH 7.0 (5.0-9.0) Ur Specific [place] 1.020 (1.005-1.025) Urine Protein 30 (1+) H (Neg-Trace) mg/dL Urine Glucose (UA) Negative (Negative) mg/dL Urine Ketones Negative (Negative) mg/dL Urine Blood Large (3+) H (Negative) Urine Nitrite Negative (Negative) Ur Leukocyte Esterase Trace H (Negative) Urine RBC >20 H (0-2) /HPF Urine WBC 0-5 (0-5) /HPF Ur Squamous Epith Cells 6-10 (0-2) /HPF Urine Bacteria None Seen (None Seen) Hyaline Casts 0-2 (0-2) /LPF Independent Interpretation I performed an independent interpretation of an: CT Scan Interpretation: My interpretation is in agreement with the radiologist's impression of this imaging study. EXAMINATION: CT ABDOMEN AND PELVIS WITHOUT CONTRAST CLINICAL INFORMATION: Right flank pain COMPARISON: CT abdomen and pelvis 10/23/2017, pelvic ultrasound 10/23/2017 TECHNIQUE: Multidetector volumetric imaging was performed from the superior aspect of the liver through the pubic symphysis. Sagittal and coronal reformatted images were obtained on the technologist's workstation. This CT examination was performed using dose optimization techniques as appropriate, variously including the following: *Automated exposure control *Adjustment of mA and/or kV according to patient size (this includes techniques or standardized protocols for targeted exams where dose is matched to indication/reason for exam; i.e. extremities or head) *Use of iterative reconstruction technique DLP: 578 mGy-cm FINDINGS: LUNG BASES: Unremarkable. ABDOMINAL AND PELVIC WALL: Diastases of the rectus abdominis musculature. LIVER AND BILIARY TREE: Hypoattenuating hepatic parenchyma compatible with hepatic steatosis with geographic regions of focal fatty sparing. Liver is enlarged measuring 19.8 cm in span. GALLBLADDER: Unremarkable. PANCREAS: Unremarkable. SPLEEN: Unremarkable. ADRENAL GLANDS: Unremarkable. KIDNEYS AND URETERS: Bosniak 1 benign appearing left renal cysts, no imaging follow-up recommended. No hydronephrosis or nephrolithiasis. GASTROINTESTINAL TRACT: Small hiatal hernia. Large and small bowel are unremarkable. Normal appendix. VASCULAR: Unremarkable. LYMPH NODES/PERITONEUM: No lymphadenopathy. FREE FLUID: None. BLADDER: Unremarkable. PELVIC VISCERA: A 3.4 cm simple fluid attenuation and left ovarian cyst, previously 4.1 cm in [address] Myomatous uterus. OSSEOUS STRUCTURES: Unremarkable. CT/CT abdomen pelvis wo IV con IMPRESSION: 1. No hydronephrosis or nephrolithiasis. 2. Hepatomegaly and hepatic steatosis. 3. A 3.4 cm simple fluid attenuation and left ovarian cyst decreased in size from 2018, therefore likely a nonneoplastic cyst. No follow-up imaging recommended. Dictated By: Renetta Valencia MD Signed By: Electronically signed by Renetta Valencia MD 03/29/23 1500 Radiology Impression Discussion of test interpretation with radiology: I have reviewed the radiologist's reading. Chronic Conditions Patient?s care impacted by: Diabetes Discharge Plan Discharge Clinical Impression: Flank pain Patient Disposition: Home, Self-Care Instructions: Flank Pain (ED) Additional Instructions: Follow up with your primary care provider and your urologist. Return to the emergency department immediately if your symptoms worsen or if you develop any dizziness, shortness of breath, difficulty breathing, chest pain, blurry vision, loss of vision, nausea, vomiting, abdominal pain, fever, chills, back pain, or any other complaints. Prescriptions: No Action cyclobenzaprine 10 mg tablet 10 mg PO TID PRN (Reason: muscle spasm) Qty: 10 0RF ibuprofen 600 mg tablet 600 mg PO TID PRN (Reason: pain) Qty: 10 0RF acetaminophen [Tylenol Extra Strength] 500 mg tablet 500 mg PO Q6H PRN (Reason: pain or fever) Qty: 20 0RF ibuprofen 400 mg tablet 400 mg PO Q6H 7 Days Qty: 20 0RF azithromycin 500 mg tablet See Rx Instructions PO .COMPLEX Qty: 3 0RF Rx Instructions: take 500 mg today (day 1), then 250 mg for 4 days (days 2-5) codeine-guaifenesin [Guaifenesin AC] 10-100 mg/5 mL liquid 5 ml PO Q6H PRN (Reason: cold symptoms) Qty: 120 0RF albuterol sulfate 90 mcg/actuation HFA aerosol inhaler 1 inh inhalation QID PRN (Reason: shortness of breath or wheezing) Qty: 8.5 0RF amoxicillin-pot clavulanate 875-125 mg tablet 1 tab PO BID 7 Days Qty: 14 0RF albuterol sulfate 0.63 mg/3 mL solution for nebulization 0.63 mg inhalation QID PRN (Reason: shortness of breath or wheezing) Qty: 75 0RF prednisone 20 mg tablet 40 mg PO DAILY 5 Days Qty: 10 0RF codeine-guaifenesin [Guaifenesin AC] 10-100 mg/5 mL liquid 5 ml PO Q6H PRN (Reason: cold symptoms) Qty: 120 0RF albuterol sulfate 90 mcg/actuation HFA aerosol inhaler 1 inh inhalation QID PRN (Reason: shortness of breath or wheezing) Qty: 8.5 0RF cyclobenzaprine 10 mg tablet 10 mg PO TID PRN (Reason: muscle spasm) Qty: 14 0RF ibuprofen 600 mg tablet 600 mg PO TID PRN (Reason: pain) Qty: 10 0RF prednisone 20 mg tablet 40 mg PO DAILY 5 Days Qty: 10 0RF benzonatate 100 mg capsule 100 mg PO TID PRN (Reason: cough) Qty: 14 0RF fluticasone propionate [Flonase Allergy Relief] 50 mcg/actuation spray,suspension 2 spray intranasal DAILY Qty: 16 0RF Rx Instructions: administer into each nostril fluticasone propionate 50 mcg/actuation spray,suspension 1 spray intranasal BID cetirizine 10 mg tablet 10 mg PO DAILY omeprazole 20 mg capsule,delayed release(DR/EC) 20 mg PO DAILY amoxicillin 500 mg tablet 500 mg PO BID cyclobenzaprine 10 mg tablet 10 mg PO Q8H PRN (Reason: muscle spasm) acetaminophen 500 mg tablet 500 mg PO Q6H PRN (Reason: pain) amoxicillin-pot clavulanate 875-125 mg tablet 1 tab PO BID 7 Days Qty: 14 0RF Referrals: Brianna Salazar MD [Primary Care Provider] - Print Language: Yakut
[2023-03-29 13:12] LABS: MANUAL DIFF FLAG NO
[2023-03-29 13:18] LABS: Basophils Absolute Auto 0.1 X10*3/uL (0.0-0.2); Basophils Percent Auto 0.4 % (0-2); Eosinophils Absolute Auto 0.2 X10*3/uL (0.0-0.4); Eosinophils Percent Auto 1.9 % (0-4); Hemoglobin 12.5 g/dl (12.0-16.0); Imm Gran Abs Auto 0.04 X10*3/uL (0.00-0.03); Imm Gran Pct Auto 0.3 % (0.0-0.4); Lymphocytes Absolute Auto 2.4 X10*3/uL (1.2-4.9); Lymphocytes Percent Auto 20.2 % (20-40); Mean Corpuscular HGB Conc 32.9 g/dl (31.0-35.0); Mean Corpuscular Hemoglobin 29.9 pg (27.0-33.0); Mean Corpuscular Volume 90.9 fL (80.0-98.0); Mean Platelet Volume 8.6 fL (9.4-12.3); Monocytes Absolute Auto 0.7 X10*3/uL (0.1-1.2); Monocytes Percent Auto 6.3 % (2-11); Neutrophils Absolute Auto 8.2 x10*3/uL (2.0-8.3); Neutrophils Percent Auto 70.9 % (45-73); Platelet Count 293 X10*3/uL (160-400); Red Blood Count 4.18 X10*6/uL (4.20-5.50); Red Cell Distribution Width 13.2 % (11.0-16.0); White Blood Count 11.6 X10*3/uL (4.8-10.8)
[2023-03-29 13:24] LABS: Appearance Urine Cloudy; Color Urine Dark Yellow; Glucose Urine UA Negative (Negative); Leukocyte Esterase Urine Trace (Negative); Nitrite Urine Negative (Negative); UMIC TRIGGER UACC YES; Urine Blood Large (3+) (Negative); Urine Ketones Negative (Negative); Urine Protein 30 (1+) mg/dL (Neg-Trace)
[2023-03-29 13:25] LABS: Bacteria Urine None Seen (None Seen); Hyaline Casts Urine 0-2 /LPF (0-2); RBC Urine >20 /HPF (0-2); WBC Urine 0-5 /HPF (0-5)
[2023-03-29 13:27] LABS: Anion Gap 8 (12-20); Blood Urea Nitrogen 11 mg/dL (9-16); Calcium 9.5 mg/dL (8.4-10.2); Carbon Dioxide 28 mmol/L (22-29); Chloride 105 mmol/L (96-108); Creatinine Clr Calc Pharmacy 91.5; Estimated Glomerular Filt Rate > 60; Glucose Random 128 mg/dL (60-115); Lipase 18 U/L (8-78); Magnesium 2.2 mg/dL (1.6-2.6); Potassium 3.7 mmol/L (3.3-5.1); Sodium 137 mmol/L (135-145)
[2023-03-29] MEDS: Ketorolac Tromethamine 15 MG/ML VIAL IM (16:36)
[2023-03-29 16:50] VITALS: BP 143/86; PULSE 73; RESP 15; TEMP 36.4; O2SAT 97
== END 2023-03-29 16:51 | disposition home or self-care (01) ==
PROVIDERS: Physician Assistant Medical; Emergency Provider Emergency Medicine Emergency Medical Services; PCP Internal Medicine
DX: R10.9 Unspecified abdominal pain (principal); Z87.442 Personal history of urinary calculi
CPT/HCPCS: 36415; 74176; 80048; 81001; 83690; 83735; 85025; 96372; 99284; J1885

== ENCOUNTER 2023-04-12 19:04 | Emergency (ER) | payer OTHER, SELFPAY ==
--- NOTE | ~2023-04-12 | XR_ITS ---
EXAMINATION: XR CHEST CLINICAL INFORMATION: Chest pain COMPARISON: None available. TECHNIQUE: 2 views of the chest were obtained. FINDINGS: No significant abnormality is noted involving the heart, lungs, mediastinum, bony thorax or soft tissues. XR/XR chest 2V IMPRESSION: Unremarkable chest examination.
--- NOTE | 2023-04-12 19:07 | ECG_ITS ---
Test Reason : CHEST PAIN Blood Pressure : / mmHG Vent. Rate : 083 BPM Atrial Rate : 083 BPM P-R Int : 142 ms QRS Dur : 074 ms QT Int : 370 ms P-R-T Axes : 033 030 052 degrees QTc Int : 434 ms Normal sinus rhythm Normal ECG When compared with ECG of 28-SEP-2021 19:05, No significant change was found Referred By: Yaya Prakash Electronically Signed By:JUAN BRADFORD MD
[2023-04-12 19:17] VITALS: BP 125/68; PULSE 78; RESP 20; TEMP 37; O2SAT 98; BMI 31.4
--- NOTE | 2023-04-12 19:19 | MHC.EDTECH ---
EKG completed and handed to provider.
--- NOTE | 2023-04-12 19:26 | ED.CHESTPAIN ---
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 on the right side this happened at 14:00 since then complaining of pain in the right side which increased on palpation no shortness of breath no cough Related Data Home Medications Medication Instructions Recorded Confirmed acetaminophen 500 mg tablet 500 mg PO Q6H PRN pain 06/08/20 amoxicillin 500 mg tablet 500 mg PO BID 06/08/20 cetirizine 10 mg tablet 10 mg PO DAILY 06/08/20 cyclobenzaprine 10 mg tablet 10 mg PO Q8H PRN muscle spasm 06/08/20 fluticasone propionate 50 1 spray intranasal BID 06/08/20 mcg/actuation nasal spray,suspension omeprazole 20 mg capsule,delayed 20 mg PO DAILY 06/08/20 release Previous Rx's Medication Instructions Recorded amoxicillin 875 mg-potassium 1 tab PO BID 7 days #14 tabs 06/08/20 clavulanate 125 mg tablet cyclobenzaprine 10 mg tablet 10 mg PO TID PRN muscle spasm #10 08/15/20 tabs ibuprofen 600 mg tablet 600 mg PO TID PRN pain #10 tabs 08/15/20 cyclobenzaprine 10 mg tablet 10 mg PO TID PRN muscle spasm #14 04/22/21 tabs ibuprofen 600 mg tablet 600 mg PO TID PRN pain #10 tabs 04/22/21 acetaminophen 500 mg tablet 500 mg PO Q6H PRN pain or fever 05/23/21 (Tylenol Extra Strength) #20 tabs ibuprofen 400 mg tablet 400 mg PO Q6H 7 days #20 tabs 05/23/21 albuterol sulfate 90 mcg/actuation 1 inh inhalation QID PRN shortness 11/26/21 aerosol inhaler of breath or wheezing #8.5 grams azithromycin 500 mg tablet See Rx Instructions PO .COMPLEX #3 11/26/21 tabs codeine 10 mg-guaifenesin 100 mg/5 5 ml PO Q6H PRN cold symptoms #120 11/26/21 mL oral liquid (Guaifenesin AC) mL albuterol sulfate 0.63 mg/3 mL 0.63 mg (3 mL) inhalation QID PRN 01/04/22 solution for nebulization shortness of breath or wheezing #75 mL albuterol sulfate 90 mcg/actuation 1 inh inhalation QID PRN shortness 01/04/22 aerosol inhaler of breath or wheezing #8.5 grams amoxicillin 875 mg-potassium 1 tab PO BID 7 days #14 tabs 01/04/22 clavulanate 125 mg tablet codeine 10 mg-guaifenesin 100 mg/5 5 ml PO Q6H PRN cold symptoms #120 01/04/22 mL oral liquid (Guaifenesin AC) mL prednisone 20 mg tablet 40 mg (2 x 20 mg) PO DAILY rash 5 01/04/22 days #10 tabs benzonatate 100 mg capsule 100 mg PO TID PRN cough #14 caps 12/29/22 fluticasone propionate 50 2 spray intranasal DAILY #16 grams 12/29/22 mcg/actuation nasal spray,suspension (Flonase Allergy Relief) prednisone 20 mg tablet 40 mg (2 x 20 mg) PO DAILY 5 days 12/29/22 #10 tabs diclofenac sodium 1 % topical gel 2 g topical QID #100 grams 04/13/23 (Arthritis Pain (diclofenac)) Allergies Allergy/AdvReac Type Severity Reaction Status Date / Time ciprofloxacin [From CIPRO] Allergy Unknown PT UNABLE Verified 04/12/23 19:16 TO RECALL THE REACTION SHE HAD tramadol [TRAMADOL] Allergy Unknown UNK Verified 04/12/23 19:16 Review of Systems Review of Systems: Yes all other systems are reviewed and are negative [facility] Social History Social History Alcohol intake: never Patient Tobacco Use Status: Current everyday Tobacco user Advance Directives: No Advance Directives Information Provided: Yes Physical Exam Vital Signs: Vital Signs: Last Vital Signs Temp 98.5 F 04/13/23 01:50 Pulse 83 04/13/23 01:50 Resp 18 04/13/23 01:50 BP 146/75 H 04/13/23 01:50 Pulse Ox 95 04/13/23 01:50 O2 Del Method Room Air 04/13/23 01:50 BMI result Body Mass Index 31.4 Appearance: Alert. Oriented X3. No acute distress. ENT: Pharynx normal. Oral Mucosa moist Neck: Normal inspection. Neck supple. CVS: Normal heart rate and rhythm. Pulses normal. Respiratory: No respiratory distress. Equal air entry bilateral, no wheezing/rales/rhonchi tenderness right 2nd intercostal space no rash Abdomen: Soft and nontender. Bowel sounds are present, no mass palpable, no CVA tenderness Skin: Skin warm and dry. Normal skin color. Normal skin turgor. Extremities: No lower extremity edema. No calf tenderness Neuro: Oriented X 3. Course Course Course Narrative: RME: 52 yold female presents to the ED for right sided chest pain today after picking up [employer]. Patient denies any recent trauma, pleurisy, recent long travel, calf pain, or recent surgery. labs, EKG, and chest xray ordered. Medications Administered Discontinued Medications Generic Name Dose Route Start Last Admin Trade Name Freq PRN Reason Stop Dose Admin Oxycodone HCl 10 mg 04/13/23 03:03 04/13/23 03:09 Oxycodone Hcl Immed Release 5 Mg Tablet PO 04/13/23 03:04 10 mg ONCE ONE Administration Medical Decision Making Medical Decision Making [facility] Narrative: Patient with right-sided chest pain clinically costochondritis patient does have a fibromyalgia normal EKG and 2 sets of cardiac enzymes negative discharge patient home on diclofenac sodium gel Differential Diagnosis Differential Diagnoses: The differential diagnosis associated with the presentation includes Costochondritis/fibromyalgia/ACS Lab Data [facility] Lab Attestation statement: I reviewed the patient's lab results. 04/12/23 20:09 04/12/23 20:09 Labs: Lab Results 04/12/23 04/13/23 Range/Units 20:09 00:30 WBC 10.7 (4.8-10.8) X10*3/uL RBC 4.13 L (4.20-5.50) X10*6/uL Hgb 12.2 (12.0-16.0) g/dl Hct 36.7 L (37.0-47.0) % MCV 88.9 (80.0-98.0) fL MCH 29.5 (27.0-33.0) pg MCHC 33.2 (31.0-35.0) g/dl RDW 13.0 (11.0-16.0) % Plt Count 251 (160-400) X10*3/uL MPV 8.5 L (9.4-12.3) fL Immature Gran % (Auto) 0.5 H (0.0-0.4) % Neut % (Auto) 64.4 (45-73) % Lymph % (Auto) 25.0 (20-40) % [place] % (Auto) 6.8 (2-11) % Eos % (Auto) 2.9 (0-4) % Baso % (Auto) 0.4 (0-2) % Lymph # (Auto) 2.7 (1.2-4.9) X10*3/uL [place] # (Auto) 0.7 (0.1-1.2) X10*3/uL Eos # (Auto) 0.3 (0.0-0.4) X10*3/uL Baso # (Auto) 0.0 (0.0-0.2) X10*3/uL Abs Immat Gran (auto) 0.05 H (0.00-0.03) X10*3/uL Absolute Neuts (auto) 6.9 (2.0-8.3) x10*3/uL Absolute Nucleated RBC 0.000 (0.0-0.012) X10*3/uL Nucleated RBC % (auto) 0.0 (0.0-0.2) /100WBC PT 12.5 (11.1-13.3) SEC INR 1.0 (0.9-1.1) APTT 32.2 (26.0-36.8) SEC Sodium 142 (135-145) mmol/L Potassium 3.6 (3.3-5.1) mmol/L Chloride 104 (96-108) mmol/L Carbon Dioxide 30 H (22-29) mmol/L Anion Gap 12 (12-20) BUN 8 L (9-16) mg/dL Creatinine 0.85 (0.5-1.4) mg/dL Estim Creat Clear Calc 85.4 Estimated GFR > 60 Random Glucose 143 H (60-115) mg/dL Calcium 9.3 (8.4-10.2) mg/dL Total Bilirubin 0.2 (0.0-1.0) mg/dL AST 28 (5-31) U/L ALT 42 H (0-31) U/L Alkaline Phosphatase 85 (39-117) U/L Troponin I High Sens < 2.7 3.0 (<3.5-17.0) ng/L B-Natriuretic Peptide < 10 (<100) pg/mL Total Protein 7.9 (6.5-8.0) g/dL Albumin 4.0 (3.5-5.0) g/dL Lipase 18 (8-78) U/L Independent Interpretation I performed an independent interpretation of an: EKG and Plain X-Ray Interpretation: Normal sinus rhythm heart rate 83 beats per minute normal interval normal axis no acute ST T wave changes no acute ischemic Radiology Impression Discussion of test interpretation with radiology: I have reviewed the radiologist's reading. Discharge Plan Discharge Clinical Impression: Costalchondritis Patient Disposition: Home, Self-Care Instructions: Costochondritis (ED) Additional Instructions: Apply diclofenac gel 2-4 times daily at the inflamed area Tylenol for pain Prescriptions: New diclofenac sodium [Arthritis Pain (diclofenac)] 1 % gel 2 g topical QID Qty: 100 0RF Rx Instructions: apply to single elbow, wrist or hand; for hand includes palm/fingers/back of hand No Action cyclobenzaprine 10 mg tablet 10 mg PO TID PRN (Reason: muscle spasm) Qty: 10 0RF ibuprofen 600 mg tablet 600 mg PO TID PRN (Reason: pain) Qty: 10 0RF acetaminophen [Tylenol Extra Strength] 500 mg tablet 500 mg PO Q6H PRN (Reason: pain or fever) Qty: 20 0RF ibuprofen 400 mg tablet 400 mg PO Q6H 7 Days Qty: 20 0RF azithromycin 500 mg tablet See Rx Instructions PO .COMPLEX Qty: 3 0RF Rx Instructions: take 500 mg today (day 1), then 250 mg for 4 days (days 2-5) codeine-guaifenesin [Guaifenesin AC] 10-100 mg/5 mL liquid 5 ml PO Q6H PRN (Reason: cold symptoms) Qty: 120 0RF albuterol sulfate 90 mcg/actuation HFA aerosol inhaler 1 inh inhalation QID PRN (Reason: shortness of breath or wheezing) Qty: 8.5 0RF amoxicillin-pot clavulanate 875-125 mg tablet 1 tab PO BID 7 Days Qty: 14 0RF albuterol sulfate 0.63 mg/3 mL solution for nebulization 0.63 mg inhalation QID PRN (Reason: shortness of breath or wheezing) Qty: 75 0RF prednisone 20 mg tablet 40 mg PO DAILY 5 Days Qty: 10 0RF codeine-guaifenesin [Guaifenesin AC] 10-100 mg/5 mL liquid 5 ml PO Q6H PRN (Reason: cold symptoms) Qty: 120 0RF albuterol sulfate 90 mcg/actuation HFA aerosol inhaler 1 inh inhalation QID PRN (Reason: shortness of breath or wheezing) Qty: 8.5 0RF cyclobenzaprine 10 mg tablet 10 mg PO TID PRN (Reason: muscle spasm) Qty: 14 0RF ibuprofen 600 mg tablet 600 mg PO TID PRN (Reason: pain) Qty: 10 0RF prednisone 20 mg tablet 40 mg PO DAILY 5 Days Qty: 10 0RF benzonatate 100 mg capsule 100 mg PO TID PRN (Reason: cough) Qty: 14 0RF fluticasone propionate [Flonase Allergy Relief] 50 mcg/actuation spray,suspension 2 spray intranasal DAILY Qty: 16 0RF Rx Instructions: administer into each nostril fluticasone propionate 50 mcg/actuation spray,suspension 1 spray intranasal BID cetirizine 10 mg tablet 10 mg PO DAILY omeprazole 20 mg capsule,delayed release(DR/EC) 20 mg PO DAILY amoxicillin 500 mg tablet 500 mg PO BID cyclobenzaprine 10 mg tablet 10 mg PO Q8H PRN (Reason: muscle spasm) acetaminophen 500 mg tablet 500 mg PO Q6H PRN (Reason: pain) amoxicillin-pot clavulanate 875-125 mg tablet 1 tab PO BID 7 Days Qty: 14 0RF Interventions: ED Discharge Assessment Last Done: 04/13/23 03:10 Discharge Date/Time: 04/13/23 03:12
[2023-04-12 20:14] LABS: MANUAL DIFF FLAG NO
[2023-04-12 20:15] LABS: Basophils Percent Auto 0.4 % (0-2); Eosinophils Absolute Auto 0.3 X10*3/uL (0.0-0.4); Eosinophils Percent Auto 2.9 % (0-4); Hematocrit 36.7 % (37.0-47.0); Hemoglobin 12.2 g/dl (12.0-16.0); Imm Gran Abs Auto 0.05 X10*3/uL (0.00-0.03); Imm Gran Pct Auto 0.5 % (0.0-0.4); Lymphocytes Absolute Auto 2.7 X10*3/uL (1.2-4.9); Mean Corpuscular HGB Conc 33.2 g/dl (31.0-35.0); Mean Corpuscular Hemoglobin 29.5 pg (27.0-33.0); Mean Corpuscular Volume 88.9 fL (80.0-98.0); Mean Platelet Volume 8.5 fL (9.4-12.3); Monocytes Absolute Auto 0.7 X10*3/uL (0.1-1.2); Monocytes Percent Auto 6.8 % (2-11); Neutrophils Absolute Auto 6.9 x10*3/uL (2.0-8.3); Neutrophils Percent Auto 64.4 % (45-73); Platelet Count 251 X10*3/uL (160-400); Red Blood Count 4.13 X10*6/uL (4.20-5.50); White Blood Count 10.7 X10*3/uL (4.8-10.8)
[2023-04-12 20:29] LABS: Alanine Aminotransferase 42 U/L (0-31); Alkaline Phosphatase 85 U/L (39-117); Anion Gap 12 (12-20); Aspartate Amino Transferase 28 U/L (5-31); Bilirubin Total 0.2 mg/dL (0.0-1.0); Blood Urea Nitrogen 8 mg/dL (9-16); Calcium 9.3 mg/dL (8.4-10.2); Carbon Dioxide 30 mmol/L (22-29); Chloride 104 mmol/L (96-108); Creatinine Clr Calc Pharmacy 85.4; Estimated Glomerular Filt Rate > 60; Glucose Random 143 mg/dL (60-115); Lipase 18 U/L (8-78); Potassium 3.6 mmol/L (3.3-5.1); Sodium 142 mmol/L (135-145); Total Protein 7.9 g/dL (6.5-8.0)
[2023-04-12 20:31] LABS: Prothrombin Time 12.5 SEC (11.1-13.3)
[2023-04-12 20:34] LABS: B Type Natriuretic Peptide < 10 pg/mL (<100); Partial Thromboplastin Time 32.2 SEC (26.0-36.8)
[2023-04-12 20:37] LABS: Troponin-I High Sensitivity < 2.7 ng/L (<3.5-17.0)
[2023-04-13 01:50] VITALS: BP 146/75; PULSE 83; RESP 18; TEMP 36.9; O2SAT 95
[2023-04-13] MEDS: oxyCODONE HCl Immed Release 5 MG TABLET 10 MG PO (03:09)
== END 2023-04-13 03:12 | disposition home or self-care (01) ==
PROVIDERS: Physician Assistant; Emergency Provider Internal Medicine; PCP Internal Medicine
DX: M94.0 Chondrocostal junction syndrome [Tietze] (principal); M79.7 Fibromyalgia; F17.210 Nicotine dependence, cigarettes, uncomplicated
CPT/HCPCS: 36415; 71046; 80053; 83690; 83880; 84484; 85025; 85610; 85730; 93005; 99283; 99284

== ENCOUNTER → 2023-04-12 19:07 | Outpatient (BNV) | payer OTHER, SELFPAY | PROVIDERS: Emergency Provider Internal Medicine; PCP Internal Medicine; Visit Provider Internal Medicine Cardiovascular Disease | DX: R07.9 Chest pain, unspecified (principal) | CPT/HCPCS: 93010 ==

== ENCOUNTER 2023-07-09 10:07 | Emergency (ER) | payer OTHER, SELFPAY ==
[2023-07-09 10:11] VITALS: BP 130/76; PULSE 81; RESP 16; TEMP 36.7; O2SAT 98; BMI 31.0
[2023-07-09 10:43] LABS: IDNOW Serial# 08D9AD1C; Strep A Nucleic Acid Negative (Negative)
[2023-07-09 11:07] LABS: Influenza A PCR NEGATIVE (Negative); Influenza B PCR NEGATIVE (Negative); Resp Syncy Virus RNA Qual PCR NEGATIVE (Negative); SARS COV2 PCR INHOUSE NEGATIVE (Negative)
--- NOTE | 2023-07-09 11:27 | ED_ITS ---
HPI - URI/Sore Throat General Chief Complaint: Upper Respiratory Symptoms Stated Complaint: Difficulty breathing, sore throat Time Seen by Provider: 07/09/23 11:09 Source: patient Mode of arrival: ambulatory Limitations: no limitations History of Present Illness HPI Narrative: Patient is a 53-year-old female who presents emergency department for evaluation of URI symptoms. Reports 12 days ago she was evaluated at an urgent care at the onset of her symptoms and she tested positive for influenza. She took Tamiflu for 2 days but felt as though her symptoms were worsening so she stopped taking this. She presents today reporting persistent nonproductive cough that keeps her up at night, nasal congestion, and a sore throat. She is felt intermittently short of breath, has an albuterol inhaler at home that she has used with improvement very infrequently. Denies fevers, chills, headache, dizziness, neck pain, neck stiffness, chest pain, nausea, vomiting, abdominal pain, numbness or tingling of the extremities, genitourinary symptoms. Related Data Home Medications ?Medication ?Instructions ?Recorded ?Confirmed acetaminophen 500 mg tablet 500 mg PO Q6H PRN pain 06/08/20 amoxicillin 500 mg tablet 500 mg PO BID 06/08/20 cetirizine 10 mg tablet 10 mg PO DAILY 06/08/20 cyclobenzaprine 10 mg tablet 10 mg PO Q8H PRN muscle spasm 06/08/20 fluticasone propionate 50 1 spray intranasal BID 06/08/20 mcg/actuation nasal spray,suspension omeprazole 20 mg capsule,delayed 20 mg PO DAILY 06/08/20 release Previous Rx's ?Medication ?Instructions ?Recorded amoxicillin 875 mg-potassium 1 tab PO BID 7 days #14 tabs 06/08/20 clavulanate 125 mg tablet cyclobenzaprine 10 mg tablet 10 mg PO TID PRN muscle spasm #10 08/15/20 tabs ibuprofen 600 mg tablet 600 mg PO TID PRN pain #10 tabs 08/15/20 cyclobenzaprine 10 mg tablet 10 mg PO TID PRN muscle spasm #14 04/22/21 tabs ibuprofen 600 mg tablet 600 mg PO TID PRN pain #10 tabs 04/22/21 acetaminophen 500 mg tablet 500 mg PO Q6H PRN pain or fever 05/23/21 (Tylenol Extra Strength) #20 tabs ibuprofen 400 mg tablet 400 mg PO Q6H 7 days #20 tabs 05/23/21 albuterol sulfate 90 mcg/actuation 1 inh inhalation QID PRN shortness 11/26/21 aerosol inhaler of breath or wheezing #8.5 grams azithromycin 500 mg tablet See Rx Instructions PO .COMPLEX #3 11/26/21 tabs codeine 10 mg-guaifenesin 100 mg/5 5 ml PO Q6H PRN cold symptoms #120 11/26/21 mL oral liquid (Guaifenesin AC) mL albuterol sulfate 0.63 mg/3 mL 0.63 mg (3 mL) inhalation QID PRN 01/04/22 solution for nebulization shortness of breath or wheezing #75 mL albuterol sulfate 90 mcg/actuation 1 inh inhalation QID PRN shortness 01/04/22 aerosol inhaler of breath or wheezing #8.5 grams amoxicillin 875 mg-potassium 1 tab PO BID 7 days #14 tabs 01/04/22 clavulanate 125 mg tablet codeine 10 mg-guaifenesin 100 mg/5 5 ml PO Q6H PRN cold symptoms #120 01/04/22 mL oral liquid (Guaifenesin AC) mL prednisone 20 mg tablet 40 mg (2 x 20 mg) PO DAILY rash 5 01/04/22 days #10 tabs benzonatate 100 mg capsule 100 mg PO TID PRN cough #14 caps 12/29/22 fluticasone propionate 50 2 spray intranasal DAILY #16 grams 12/29/22 mcg/actuation nasal spray,suspension (Flonase Allergy Relief) prednisone 20 mg tablet 40 mg (2 x 20 mg) PO DAILY 5 days 12/29/22 #10 tabs diclofenac sodium 1 % topical gel 2 g topical QID #100 grams 04/13/23 (Arthritis Pain (diclofenac)) amoxicillin 875 mg-potassium 1 tab PO BID #14 tabs 07/09/23 clavulanate 125 mg tablet Allergies Allergy/AdvReac Type Severity Reaction Status Date / Time ciprofloxacin [From CIPRO] Allergy Unknown PT UNABLE Verified 07/09/23 10:13 TO RECALL THE REACTION SHE HAD tramadol [TRAMADOL] Allergy Unknown UNK Verified 07/09/23 10:13 Review of Systems Review of Systems: Yes all other systems are reviewed and are negative PMFSH Past Medical History Attestation statement: The following information was validated with the patient. Source: old records reviewed Social History Social History Alcohol intake: never Patient Tobacco Use Status: Current everyday Tobacco user Advance Directives: No Advance Directives Information Provided: Yes Do you have a plan to hurt others: No Plan Physical Exam Vital Signs: Vital Signs: Last Vital Signs Temp 98.0 F 07/09/23 10:11 Pulse 81 07/09/23 10:11 Resp 16 07/09/23 10:11 BP 130/76 07/09/23 10:11 Pulse Ox 98 07/09/23 10:11 O2 Del Method Room Air 07/09/23 10:11 BMI result Body Mass Index 31.0 Appearance: Alert.?Oriented to person, place and time. No acute distress.?Normal affect. Eyes: Pupils equal, round and reactive to light.? ENT: TM normal bilaterally. Pharynx Mildly erythematous, no exudates , no tonsillar hypertrophy. Uvula midline. No trismus. No drooling. Neck: Normal inspection.? Neck supple.??No cervical adenopathy CVS: Heart sounds normal. Normal heart rate and rhythm.? Pulses normal.?? Respiratory: No respiratory distress.? Lung sounds clear to auscultation bilaterally?? Abdomen: Soft and non-tender. Normoactive bowel sounds. Skin: Skin warm and dry.? Normal skin color.? ? Extremities: No lower extremity edema.? Neuro: Moves all extremities spontaneously. Sensation intact bilaterally. No motor deficits. Ambulates with normal steady gait. Medical Decision Making Medical Decision Making MDM Narrative: Patient is a 53-year-old female, presenting for evaluation of upper respiratory symptoms. COVID-19 /influenza/RSV testing negative. Strep a testing negative. No evidence of peritonsillar retropharyngeal abscess. Given recent influenza, discussed possible superimposed bacterial infection will treat with course of antibiotic. Lung sounds are clear throughout. overall she is Well-appearing, nontoxic, afebrile, no tachycardia or tachypnea/hypoxia. Speaking clear full sentences, ambulatory with steady gait. Discussed conservative treatment including rest, hydration, Tylenol/ibuprofen as needed for fever and body aches, saline nasal spray, humidifier, [id number] cold medication. Advised to follow-up with primary care provider as needed, discussed reasons to return back to the emergency department. All questions were answered. Patient discharged home in stable condition. Differential Diagnosis Differential Diagnoses: The differential diagnosis associated with the presentation includes ( See narrative above) Admission/Observation Consideration of admission/observation: Escalation of care including admission/observation considered ( see narrative above) Lab Data MDM Lab Attestation statement: I reviewed the patient's lab results. ( see tesfaye rative above) Labs: Lab Results 07/09/23 Range/Units 10:24 Influenza Type A (PCR) NEGATIVE (Negative) Influenza Type B (PCR) NEGATIVE (Negative) RSV RNA Qual (PCR) NEGATIVE (Negative) SARS-CoV-2 RNA (RT-PCR) NEGATIVE (Negative) S. pyogenes GrpA GREGORY Negative (Negative) External Record Review External record reviewed: Outpatient record Prescription Management I considered prescription management with: Pain Medication ( acetaminophen/ibuprofen) and Antibiotic Discharge Plan Discharge Clinical Impression: Bronchitis, Sinusitis Patient Disposition: Home, Self-Care Instructions: Sinusitis (ED), Acute Bronchitis (ED) Prescriptions: New amoxicillin-pot clavulanate 875-125 mg tablet 1 tab PO BID Qty: 14 0RF No Action cyclobenzaprine 10 mg tablet 10 mg PO TID PRN (Reason: muscle spasm) Qty: 10 0RF ibuprofen 600 mg tablet 600 mg PO TID PRN (Reason: pain) Qty: 10 0RF acetaminophen [Tylenol Extra Strength] 500 mg tablet 500 mg PO Q6H PRN (Reason: pain or fever) Qty: 20 0RF ibuprofen 400 mg tablet 400 mg PO Q6H 7 Days Qty: 20 0RF azithromycin 500 mg tablet See Rx Instructions PO .COMPLEX Qty: 3 0RF Rx Instructions: take 500 mg today (day 1), then 250 mg for 4 days (days 2-5) codeine-guaifenesin [Guaifenesin AC] 10-100 mg/5 mL liquid 5 ml PO Q6H PRN (Reason: cold symptoms) Qty: 120 0RF albuterol sulfate 90 mcg/actuation HFA aerosol inhaler 1 inh inhalation QID PRN (Reason: shortness of breath or wheezing) Qty: 8.5 0RF amoxicillin-pot clavulanate 875-125 mg tablet 1 tab PO BID 7 Days Qty: 14 0RF albuterol sulfate 0.63 mg/3 mL solution for nebulization 0.63 mg inhalation QID PRN (Reason: shortness of breath or wheezing) Qty: 75 0RF prednisone 20 mg tablet 40 mg PO DAILY 5 Days Qty: 10 0RF codeine-guaifenesin [Guaifenesin AC] 10-100 mg/5 mL liquid 5 ml PO Q6H PRN (Reason: cold symptoms) Qty: 120 0RF albuterol sulfate 90 mcg/actuation HFA aerosol inhaler 1 inh inhalation QID PRN (Reason: shortness of breath or wheezing) Qty: 8.5 0RF cyclobenzaprine 10 mg tablet 10 mg PO TID PRN (Reason: muscle spasm) Qty: 14 0RF ibuprofen 600 mg tablet 600 mg PO TID PRN (Reason: pain) Qty: 10 0RF diclofenac sodium [Arthritis Pain (diclofenac)] 1 % gel 2 g topical QID Qty: 100 0RF Rx Instructions: apply to single elbow, wrist or hand; for hand includes palm/fingers/back of hand prednisone 20 mg tablet 40 mg PO DAILY 5 Days Qty: 10 0RF benzonatate 100 mg capsule 100 mg PO TID PRN (Reason: cough) Qty: 14 0RF fluticasone propionate [Flonase Allergy Relief] 50 mcg/actuation spray,suspension 2 spray intranasal DAILY Qty: 16 0RF Rx Instructions: administer into each nostril fluticasone propionate 50 mcg/actuation spray,suspension 1 spray intranasal BID cetirizine 10 mg tablet 10 mg PO DAILY omeprazole 20 mg capsule,delayed release(DR/EC) 20 mg PO DAILY amoxicillin 500 mg tablet 500 mg PO BID cyclobenzaprine 10 mg tablet 10 mg PO Q8H PRN (Reason: muscle spasm) acetaminophen 500 mg tablet 500 mg PO Q6H PRN (Reason: pain) amoxicillin-pot clavulanate 875-125 mg tablet 1 tab PO BID 7 Days Qty: 14 0RF Referrals: Brianna Salazar MD [Primary Care Provider] - Print Language: Greenlandic
[2023-07-09 11:54] VITALS: BP 130/76; PULSE 81; RESP 16; TEMP 36.7; O2SAT 98
== END 2023-07-09 11:54 | disposition home or self-care (01) ==
PROVIDERS: Emergency Provider Student in an Organized Health Care Education/Training Program; PCP Internal Medicine
DX: J40 Bronchitis, not specified as acute or chronic (principal); J32.9 Chronic sinusitis, unspecified
CPT/HCPCS: 0241U; 87651; 99283